=== PATIENT | male | born 1935 | race Caucasian/White ===

== ENCOUNTER 2019-10-13 14:23 | Observation (INO) ==
--- NOTE | 2019-10-13 14:51 | DR.GENAD ---
HPI Time Seen Time Seen by Provider: 10/13/19 14:51 PCP Primary Care Physician: DR. SABA Complaint/Symptoms Chief Complaint Doctors Comments: 84yo male presented for double vision. Pt reports nml vision yesterday and woke up today with double vision and ataxia. Pt denies any HUSSEIN, slurred speech, SOB, CP, weakness or recent trauma. pt was started on Abx for left leg wound. Denies any pain Chief Complaint:: PATIENT STATES HE IS SEEING DOUBLE AND HIS MD INSTRUCTED HIM TO COME TO THE ER TO GET A BRAIN SCAN DONE. STATES THIS STARTED THIS MORNING. STATES THAT HE WENT TO THE [employer] SUPER[facility] YESTERDAY AND THEY STARTED HIM ON AN ANTIBIOTIC SO HE THOUGHT MAYBE HE WAS HAVING AN ALLERGIC REACTION. Nurses notes reviewed Nurses Notes Review: Yes Source History Provided: Patient Mode of Arrival Mode of Arrival: Ambulatory Timing Onset of Chief Complaint: 10/13/19 Came on: On Awakening Duration Duration: Constant Duration: Hours Severity Severity: None Modifying Factors Worsens:: nothing Improves:: close one eye Associated Signs and Symptoms Associated Signs and Symptoms: none PMH PMH Past Medical History: Yes Past Medical History Comment: PROSTATE ALLERGIES Past Surgical History: No Family History History of Family Medical Conditions: No Social History Type of Tobacco Use: None Does any household member use tobacco: No Alcohol Use: None Do you use any recreational Drugs:: No Lives With: Spouse Lives Where: Home infectious screening Have you traveled outside the country in the last 6 months?: No Isolation: Standard ROS Review of Systems Constitutional: negative Chills, Fever and Weakness Eyes: Blurred Vision and Diplopia; negative Eye Pain ENTM: negative Nose Congestion Respiratoy: negative Short of Breath Cardiovascular: negative Chest Pain Gastrointestinal/Abdominal: negative Abdominal Pain, Nausea and Vomiting Genitourinary: negative Dysuria and Hematuria Neurological: Problems Walking; negative Headache, Seizure, Weakness and Dizziness Musculoskeletal: negative Neck Pain Integumentary: negative Rash Hematologic/Lymphatic: negative Lymphadenopathy Endocrine: negative Decreased Appetite Psychiatric: negative Depression All Other Systems: Reviewed and Negative PE Vital Signs Vitals: Temperature 98.2 F Pulse Rate 88 Respiratory Rate 18 Blood Pressure 118/68 O2 Sat by Pulse Oximetry 95 General Limitations: No Limitations Head Head Exam: Normal Inspection, Atraumatic and Normocephalic Eyes Eye exam: Normal Appearance, PERRL, EOMI and Other (No visual field deficits); negative Scleral Icterus and Nystagmus ENT ENT Exam: Normal Exam, Normal Oropharynx, Normal External Ear Exam, Mucous Membranes Moist and TM's Normal Bilaterally External Ear Exam: Normal External Inspection TM/Canal Exam: Bilateral: Normal Nose Exam: Normal Nose Exam Neck Neck Exam: Normal Inspection and Full ROM; negative Tenderness and Meningismus Respiratory Respiratory Exam: Normal Lung Sounds Bilat; negative Respiratory Distress Respiratory Exam: Bilateral: Clear to Auscultation Cardiovascular Cardiovascular Exam: Regular Rate and Normal Rhythm Abdominal Exam Abdominal Exam: Soft; negative Distention and Tenderness Extremities Extremities Exam: Normal Inspection, Full ROM and Normal Capillary Refill; negative Tenderness and Edema Back Back Exam: Normal Inspection; negative Tenderness and Vertebral Tenderness Neurologic Neurological Exam: Alert, Oriented X3, CN II-XII Intact and Reflexes Normal; negative Normal Gait and Motor Sensory Deficit Psychiatric Psychiatric Exam: Normal Affect and Normal Mood Skin Skin Exam: Warm, Dry and Intact MDM Additional Information Additional Information Obtained From: Old Records Differential Diagnosis Differential Diagnosis: stroke/mass/ataxia/ich COURSE Reevaluation 1st: Unchanged (pt still having dipolia, no HUSSEIN, slurred speech or FND. Will order MRI/MRA of head. Pt stable and will continue to monitor.) 2nd: Unchanged Consultation Consultation Comments: spoke to Dr. Saba for admission, agree with plan. will see in hospital. Education/Counseling Education/Counseling: Patient, Family, Education and Counseling Educated On: Treatment, Diagnosis, Prognosis and Needs for Follow Up (pcp) ROR Labs Reviewed Laboratory Results Reviewed?: Yes Result Diagrams: 10/13/19 15:18 10/13/19 15:18 Laboratory: WBC 6.1 X10^3/uL (3.6-10.0) 10/13/19 15:18 RBC 5.09 X10^6/uL (4.7-6.0) 10/13/19 15:18 Hgb 13.6 g/dL (13.5-18.0) 10/13/19 15:18 Hct 41.3 % (42.0-54.0) L 10/13/19 15:18 MCV 81.2 fL (80.0-100.0) 10/13/19 15:18 MCH 26.7 pg (27.0-34.0) L 10/13/19 15:18 MCHC 32.9 g/dL (33.0-35.0) L 10/13/19 15:18 RDW 16.5 % (11.6-16.5) 10/13/19 15:18 Plt Count 244 X10^3/uL (150.0-450.0) 10/13/19 15:18 MPV 7.2 fL (7.4-11.0) L 10/13/19 15:18 Neut % (Auto) 62.6 % (42.0-75.0) 10/13/19 15:18 Lymph % (Auto) 19.8 % (21.0-51.0) L 10/13/19 15:18 [place] % (Auto) 12.6 % (0.0-13.0) 10/13/19 15:18 Eos % (Auto) 3.7 % (0.9-2.9) H 10/13/19 15:18 Baso % (Auto) 1.3 % (0.2-1.0) H 10/13/19 15:18 Neut # (Auto) 3.8 x10^3/uL (2.2-4.8) 10/13/19 15:18 Lymph # (Auto) 1.2 X10^3/uL (1.3-2.9) L 10/13/19 15:18 [place] # (Auto) 0.8 x10^3/uL (0.3-0.8) 10/13/19 15:18 Eos # (Auto) 0.2 x10^3/uL (0.0-0.2) 10/13/19 15:18 Baso # (Auto) 0.1 X10^3/uL (0.0-0.1) 10/13/19 15:18 Absolute Nucleated RBC 0.1 /100WBC 10/13/19 15:18 ESR 13 MM/HOUR (0-15) 10/13/19 15:18 PT 13.9 SECONDS (11.8-14.3) 10/13/19 15:18 INR Target Range - 10/13/19 15:18 INR 1.11 (0.8-1.3) 10/13/19 15:18 APTT 30.3 SECONDS (22.9-36.5) 10/13/19 15:18 PTT Comment - 10/13/19 15:18 Sodium 141 mmol/L (136-145) 10/13/19 15:18 Corrected Sodium TNP 10/13/19 15:18 Potassium 4.0 mmol/L (3.5-5.1) 10/13/19 15:18 Chloride 104 mmol/L (98-107) 10/13/19 15:18 Carbon Dioxide 27.7 mmol/L (21-32) 10/13/19 15:18 BUN 12 mg/dL (7-18) 10/13/19 15:18 Creatinine 1.55 mg/dL (0.70-1.30) H 10/13/19 15:18 Est GFR (MDRD) Af Amer 55 (>60) L 10/13/19 15:18 Est GFR (MDRD) Non-Af 45 (>60) L 10/13/19 15:18 Glucose 98 mg/dL (65-99) 10/13/19 15:18 Calcium 9.7 mg/dL (8.5-10.1) 10/13/19 15:18 Troponin I 0.02 ng/mL (0-1.5) 10/13/19 15:18 Specimen Type Random urine 10/13/19 16:52 Urine Color Yellow (YELLOW) 10/13/19 16:52 Urine Appearance Clear (CLEAR) 10/13/19 16:52 Urine pH 6.5 (5.0 - 8.0) 10/13/19 16:52 Ur Specific [place] 1.015 (1.000-1.030) 10/13/19 16:52 Urine Protein Negative (NEGATIVE) 10/13/19 16:52 Urine Glucose (UA) Negative (NEGATIVE) 10/13/19 16:52 Urine Ketones Negative (NEGATIVE) 10/13/19 16:52 Urine Occult Blood Negative (NEGATIVE) 10/13/19 16:52 Urine Nitrite Negative (NEGATIVE) 10/13/19 16:52 Urine Bilirubin Negative (NEGATIVE) 10/13/19 16:52 Urine Urobilinogen Normal (NORMAL) 10/13/19 16:52 Ur Leukocyte Esterase Negative (NEGATIVE) 10/13/19 16:52 Other Results Comments: WBC 6.1 Hb 13.6 BMP Cr 1.55 Trop neg ESR [address] head: NAF MRI brain: Punctate regions of acute ischemia involving tegmentum interposed b/w the red nuclei and periaqueductal lopez MRA head: neg XRAY XRAY Interpreted by: Radiologist XRAY Findings: CXR: CM with COPD EKG Rate: 73 [place]: LAD Rhythm: NSR Block: IVCD Hypertrophy: None ST: Nonsp (PVC present, no comparison aviable, interpeted by me) Opioid Opioid Risk Tool Total: 0 Total Score Risk Category: Low Risk Copyright: [employer] predicting aberrant behaviors Diagnosis Discharge Problem: TIA (transient ischemic attack), LUDIVINA (acute kidney injury), Double vision with both eyes open Instructions Forms: Excuse From Work Patient Portal ADDITIONAL NOTES Additional Notes Additional Notes: I have personally reviewed your medications, lab results, imaging and time was spent discussion results. Patient educated on their health issue. They verbalized their understanding and agreed with plan of care. Condition: Stable Disposition: Admission
[2019-10-13 15:28] LABS: BASOPHILS # (AUTO) 0.1 X10^3/uL (0.0-0.1); BASOPHILS % (AUTO) 1.3 % (0.2-1.0); EOSINOPHILS # (AUTO) 0.2 x10^3/uL (0.0-0.2); EOSINOPHILS % (AUTO) 3.7 % (0.9-2.9); HEMATOCRIT 41.3 % (42.0-54.0); HEMOGLOBIN 13.6 g/dL (13.5-18.0); LYMPHOCYTES # (AUTO) 1.2 X10^3/uL (1.3-2.9); LYMPHOCYTES % (AUTO) 19.8 % (21.0-51.0); MEAN CORPUSCULAR HEMOGLOBIN 26.7 pg (27.0-34.0); MEAN CORPUSCULAR HGB CONC 32.9 g/dL (33.0-35.0); MEAN CORPUSCULAR VOLUME 81.2 fL (80.0-100.0); MEAN PLATELET VOLUME 7.2 fL (7.4-11.0); MONOCYTES # (AUTO) 0.8 x10^3/uL (0.3-0.8); MONOCYTES % (AUTO) 12.6 % (0.0-13.0); NEUTROPHILS # (AUTO) 3.8 x10^3/uL (2.2-4.8); NEUTROPHILS % (AUTO) 62.6 % (42.0-75.0); PLATELET COUNT 244 X10^3/uL (150.0-450.0); RED BLOOD COUNT 5.09 X10^6/uL (4.7-6.0); RED CELL DISTRIBUTION WIDTH 16.5 % (11.6-16.5); WHITE BLOOD COUNT 6.1 X10^3/uL (3.6-10.0)
[2019-10-13 15:43] LABS: BLOOD UREA NITROGEN 12 mg/dL (7-18); CALCIUM 9.7 mg/dL (8.5-10.1); CARBON DIOXIDE 27.7 mmol/L (21-32); CHLORIDE 104 mmol/L (98-107); CREATININE 1.55 mg/dL (0.70-1.30); SODIUM 141 mmol/L (136-145); TROPONIN I 0.02 ng/mL (0-1.5); eGFR NON BLACK RACES 45 (>60)
--- NOTE | 2019-10-13 15:45 | CT ---
CT HEAD WITHOUT CONTRAST CLINICAL HISTORY: 84-year-old male with double vision. Patient reports ataxia. COMPARISON: None. TECHNIQUE: Multiple, non-contrasted axial CT images were obtained from the skull base to the cranial vertex. Coronal and sagittal reformats were performed. Dose reduction techniques including Automated Exposure Control (AEC) and adjustment of mA and kV were utilized. FINDINGS: There are no abnormal intra- or extra-axial fluid collections, midline shift, or mass effect. Watt-white differentiation is normal. Global cortical involutional changes are present that are advanced for the patient's stated age. The ventricular system is enlarged but commensurate with the degree of sulcal prominence. Chronic infarction with encephalomalacia anterior aspect right keating radiata with chronic lacunar infarctions of the bilateral basal ganglia. Periventricular and supraventricular white matter hypodensity is present that is nonspecific in appearance, but most likely to represent microvascular ischemic changes. Atherosclerotic vascular calcification is present within the carotid siphons and distal vertebral arteries. Bilateral aphakia. Mucosal thickening scattered throughout the ethmoid labyrinth and left maxillary sinus with trace mucosal thickening right maxillary sinus. Scattered mucosal polyps throughout the left maxillary sinus and nasal passages. Remaining paranasal sinuses, mastoid air cells and tympanic cavities are clear. IMPRESSION: 1. No definite evidence of an acute intracranial process. If clinical concern persists for acute stroke and it would alter patient management, consider MRI/MRA brain. 2. Moderate microvascular white matter ischemic changes, with associated volume loss. 3. Mucosal thickening and sinonasal polyps as above. 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 Outpatient follow-up with ENT. Reported By:
[2019-10-13 16:05] LABS: ERYTHROCYTE SEDIMENTATION RATE 13 MM/HOUR (0-15)
--- NOTE | 2019-10-13 16:12 | RAD ---
HISTORY: 84-year-old male with double vision. Study: Frontal view of the chest. Comparison: None. Findings: The trachea is midline. The cardiac silhouette is enlarged with prominent interstitium and perihilar lung markings with exclusion of the costophrenic angles. The lungs are clear without focal consolidation, effusion or pneumothorax. Soft tissues are unremarkable. Osseous structures are unremarkable. IMPRESSION: 1. Cardiomegaly with findings consistent with COPD Reported By:
[2019-10-13] MEDS ORDERED: NS 1000 ML 1,000 ML IV ONE (16:16)
[2019-10-13 17:00] LABS: BILIRUBIN,URINE NEGATIVE (NEGATIVE); BLOOD/HEMOGLOBIN,URINE NEGATIVE (NEGATIVE); GLUCOSE, URINE NEGATIVE (NEGATIVE); KETONES,URINE NEGATIVE (NEGATIVE); LEUKOCYTE ESTERASE ,URINE NEGATIVE (NEGATIVE); NITRITES,URINE NEGATIVE (NEGATIVE); PH,URINE 6.5 (5.0 - 8.0); PROTEIN,URINE NEGATIVE (NEGATIVE); UROBILINOGEN,URINE NORMAL (NORMAL)
[2019-10-13 17:03] LABS: APPEARANCE,URINE CLEAR (CLEAR); COLOR,URINE YELLOW (YELLOW)
--- NOTE | 2019-10-13 18:00 | MRI ---
MRA HEAD WITHOUT CONTRAST CLINICAL HISTORY: 84-year-old male with diplopia and ataxia. COMPARISONS: CT head this date. TECHNIQUE: 3-D time of flight magnetic resonance angiographic images of the [place] were obtained and presented as maximum intensity projection images in rotating format. FINDINGS: The vertebral arteries are codominant. Bilateral PICA are present. The basilar artery is normal in appearance and gives off normal bilateral superior cerebellar and posterior cerebral arteries. Small caliber left P1 segment with the left P2 segment predominantly supplied by moderate caliber left posterior communicating artery. No right posterior communicating artery visualized. The internal carotid arteries are normal from the distal cervical segments to the carotid terminus. The middle and anterior cerebral arteries are normal in course and caliber. There is a small caliber anterior communicating artery. IMPRESSION: No aneurysm, high-grade stenosis, complete occlusion, dissection or vascular malformation. Reported By:
--- NOTE | 2019-10-13 18:13 | MRI ---
MRI BRAIN WITHOUT CONTRAST CLINICAL HISTORY: 84-year-old male with diplopia and ataxia. COMPARISON: CT head this date. TECHNIQUE: Multiplanar, multisequence MR images of the brain were obtained without contrast. FINDINGS: Punctate foci of diffusion restriction, right slightly greater than left within the teg[place] rim abutting the dorsal aspect of the red nuclei bilaterally and extending into the ventral periaqueductal lopez. Associated signal loss on ADC with subtle T2 FLAIR hyperintensity. No evidence of hemorrhagic transformation. The craniocervical junction is normal. Pituitary and optic nerve complex are normal. Multifocal punctate and small confluent T2 FLAIR signal hyperintensities are present within the subcortical, juxtacortical, periventricular and supraventricular white matter that are nonspecific in appearance but most likely to represent microvascular white matter ischemic changes. Chronic ischemic insult right putamen with encephalomalacia and left thalamus with encephalomalacia. Chronic ischemic insult right cerebellar hemisphere and bilateral occipital lobes with associated small volume encephalomalacia and surrounding gliosis. Normal signal characteristics and morphology are demonstrated within the cerebral cortex and corpus callosum. The major vascular flow voids, to include the dural venous sinuses, are intact. No abnormal susceptibility on gradient imaging. Age advanced cortical volume loss is present, with commensurate sulcal and ventricular prominence. The basilar cisterns are normal. Bilateral aphakia. The orbits and globes are otherwise within normal limits. Trace mucosal thickening of the frontal sinuses with scattered mucosal thickening throughout the ethmoid labyrinth. Moderate mucosal thickening left maxillary and mild mucosal thickening right maxillary sinus with trace mucosal thickening of the sphenoid sinuses. Small mucosal polyps left maxillary sinus and throughout the nasal passages. Tympanic cavities and mastoid air cells are clear. IMPRESSION: 1. Punctate regions of acute ischemia involving the tegmentum interposed between the red nuclei and periaqueductal lopez as above without hemorrhagic transformation. 2. 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 3. Mucosal thickening of the paranasal sinuses with sinonasal polyposis as above. Outpatient ENT evaluation is needed. Reported By:
[2019-10-13] MEDS ORDERED: ASPIRIN PO ONE (18:31)
[2019-10-13] MEDS ORDERED: ASPIRIN ONE (18:56)
[2019-10-13] MEDS: NS 1000 ML 1,000 ML IV SCH ×2 (20:48→23:48)
[2019-10-13] MEDS ORDERED: ALLEGRA ONE (20:57)
[2019-10-13] MEDS: SINGULAIR TAB 10 MG PO SCH ×2 (21:11)
[2019-10-13] MEDS: ALLEGRA PO SCH (21:11)
[2019-10-13 21:19] VITALS: BMI 26.0
[2019-10-14 05:13] LABS: BASOPHILS # (AUTO) 0.1 X10^3/uL (0.0-0.1); BASOPHILS % (AUTO) 1.1 % (0.2-1.0); EOSINOPHILS # (AUTO) 0.3 x10^3/uL (0.0-0.2); EOSINOPHILS % (AUTO) 6.5 % (0.9-2.9); HEMATOCRIT 36.6 % (42.0-54.0); HEMOGLOBIN 12.1 g/dL (13.5-18.0); LYMPHOCYTES # (AUTO) 1.3 X10^3/uL (1.3-2.9); LYMPHOCYTES % (AUTO) 26.6 % (21.0-51.0); MEAN CORPUSCULAR HEMOGLOBIN 26.8 pg (27.0-34.0); MEAN CORPUSCULAR VOLUME 81.2 fL (80.0-100.0); MEAN PLATELET VOLUME 7.4 fL (7.4-11.0); MONOCYTES # (AUTO) 0.7 x10^3/uL (0.3-0.8); MONOCYTES % (AUTO) 13.8 % (0.0-13.0); NEUTROPHILS # (AUTO) 2.6 x10^3/uL (2.2-4.8); PLATELET COUNT 205 X10^3/uL (150.0-450.0); RED BLOOD COUNT 4.51 X10^6/uL (4.7-6.0); RED CELL DISTRIBUTION WIDTH 16.4 % (11.6-16.5); WHITE BLOOD COUNT 4.9 X10^3/uL (3.6-10.0)
[2019-10-14 05:28] LABS: BLOOD UREA NITROGEN 10 mg/dL (7-18); CALCIUM 8.7 mg/dL (8.5-10.1); CARBON DIOXIDE 26.6 mmol/L (21-32); CHLORIDE 107 mmol/L (98-107); CHOL/HDL RATIO 3.4 (0.0-5.0); CHOLESTEROL 96 mg/dL (0-200); CREATININE 1.33 mg/dL (0.70-1.30); HDL CHOLESTEROL 28 mg/dL (40-60); SODIUM 141 mmol/L (136-145); TRIGLYCERIDES 86 mg/dL (0-150); TROPONIN I 0.03 ng/mL (0-1.5); eGFR NON BLACK RACES 54 (>60)
--- NOTE | 2019-10-14 07:54 | VAS ---
HISTORY: Diplopia Study: Carotid sonogram Comparison: None Technique: Multiple grayscale sonographic images were obtained. Color duplex Doppler evaluation was performed. Findings: On the right, there is no significant plaque present. Peak systolic velocity in the internal carotid artery 66.2 centimeters/second. ICA/CCA ratio 0.88. No stenosis is present. Flow in the vertebral artery was antegrade. On the left, no significant plaque is present. Peak systolic velocity in the internal carotid artery 71.7 centimeters/second. ICA/CCA ratio 0.96. No stenosis is present. Flow in the left vertebral artery was antegrade. IMPRESSION: But evidence for hemodynamically significant stenosis on either side Reported By:
[2019-10-14] MEDS ORDERED: ALLEGRA ONE ×2 (08:55→20:10)
[2019-10-14] MEDS ORDERED: DOXAZOSIN 4 MG PO SCH (09:00)
[2019-10-14] MEDS ORDERED: ASPIRIN PO SCH (09:00)
[2019-10-14] MEDS ORDERED: FINASTERIDE 5 MG PO SCH (09:00)
[2019-10-14 09:20] LABS: CREATINE KINASE MB 1.8 ng/mL (0-4.0); FREE T4 (FREE THYROXINE) 1.01 ng/dL (0.76-1.46); TROPONIN I 0.02 ng/mL (0-1.5); TSH (3RD GENERATION) 0.623 uIU/mL (0.358-3.74)
[2019-10-14] MEDS: CARDURA PO SCH (09:33)
[2019-10-14] MEDS: PROSCAR PO SCH (09:33)
[2019-10-14] MEDS: ECOTRIN TAB 325 MG PO SCH (09:33)
[2019-10-14] MEDS: SYNTHROID 112 mcg TAB PO SCH (09:33)
[2019-10-14] MEDS: PLAVIX PO SCH (09:33)
[2019-10-14 11:24] LABS: ABG ALLEN TEST POS; ABG BASE EXCESS -0.4 mmol/L (-2.0-2.0); ABG HCO3 22.3 mmol/L (22-26)
[2019-10-14] MEDS: ROCEPHIN VIAL 1 GRAM 1 G in NS 100 ML IV + SPIKE MINIBAG* 100 ML IV SCH (11:24)
[2019-10-14] MEDS: PULMICORT NEB TX 0.5 MG NEB SCH ×2 (11:36→21:32)
[2019-10-14] MEDS: DUONEB 0.5 MG/3 MG NEB SCH ×3 (11:36→18:01)
--- NOTE | 2019-10-14 13:32 | CT ---
CT ANGIOGRAPHY OF THE CHEST CLINICAL HISTORY: 84-year-old male with history of COPD presents with shortness of breath. COMPARISON: None. TECHNIQUE: CT angiogram of the chest was performed following the uncomplicated administration of 80 mL Omnipaque 350 intravenous contrast as per routine pulmonary embolus protocol. Coronal and Sagittal reformats provided. MIP reformats are submitted for review. Dose reduction techniques including Automated Exposure Control (AEC) and adjustment of mA and kV were utilized. FINDINGS: No pulmonary embolus is seen. There is no thoracic aortic dissection. Cardiomegaly without pericardial effusion. Scattered reactive axillary and mediastinal lymph nodes measuring up to 1 cm right pretracheal distribution without pathologic features. Moderate hiatal hernia with associated compressive atelectasis. Bibasilar subsegmental dependent atelectasis. No mass, nodule, effusion or pneumothorax. No consolidation. The trachea and mainstem bronchi are patent. Simple appearing 1.5 cm cyst right lobe of the liver with imaged upper abdomen otherwise unremarkable. The arteriovascular structures are within normal limits. Soft tissues are normal. The osseous structures are intact without fracture or malalignment. IMPRESSION: 1. No pulmonary embolus. 2. Reactive lymph nodes throughout the mediastinum and axilla, correlate clinically. 3. Moderate hiatal hernia with associated compressive atelectasis. Reported By:
--- NOTE | 2019-10-14 13:34 | DR.H&P ---
H&P - History & Physical for Day of: H&P Date: 10/13/19 - Chief Complaint Chief Complaint: SUDDEN ONSET OF DOUBLE VISION - History of Present Illness History of Present Illness: PATIENT STATES HE IS SEEING DOUBLE AND HIS MD INSTRUCTED HIM TO COME TO THE ER TO GET A BRAIN SCAN DONE. STATES THIS STARTED THIS MORNING. STATES THAT HE WENT TO THE [employer] [facility] YESTERDAY AND THEY STARTED HIM ON AN ANTIBIOTIC SO HE THOUGHT MAYBE HE WAS HAVING AN ALLERGIC REACTION. PT HAS HX OF SEVERE ALLERGIES AND DERMAITIS. PT DENIES ANY HX OF CAD, HTN. PT EVALUATED IN ER, ADMITTED FOR TREATMENT OF ACUTE ILLNESS. - Past Medical History Additional Medical History: ALLERGIES, CHRONIC DERMATITIS - Past Surgical History Additional Surgical History: CATARACT - Social History Does patient currently use any type of tobacco product: No Have you used tobacco products in the last 12 months: No Type of Tobacco Use: None Does any household member use tobacco: No Alcohol Use: None Drug Use: None - Medications Home Medications: amoxicillin [From Augmentin] Allergy (Verified 10/13/19 16:44) clavulanic acid [From Augmentin] Allergy (Verified 10/13/19 16:44) CONTINUE taking the following medications doxazosin 4 mg PO QAM 10/13/19 [History] fexofenadine 180 mg PO Q24H 10/13/19 [History] finasteride 5 mg PO DAILY 10/13/19 [History] levothyroxine 112 mcg PO DAILY 10/13/19 [History] montelukast 10 mg PO QHS 10/13/19 [History] - Review of Systems Constitutional: No Symptoms Reported Eyes: Vision Change (DOUBLE VISION) Respiratory: Cough, Wheezing Cardiovascular: Edema Gastrointestinal: No Symptoms Reported Genitourinary: No Symptoms Reported Musculoskeletal: No Symptoms Reported Skin: No Symptoms Reported Neurological: denies: Weakness, Numbness, Incoordination, Change in Speech - Physical Exam Vital Signs: Temperature 97.7 F Pulse Rate [Brachial] 55 Pulse Rate 74 Respiratory Rate 20 Blood Pressure [Right Arm] 140/78 Blood Pressure 118/68 O2 Sat by Pulse Oximetry 92 Oriented: Normal Eyes: Blurred Vision (DOUBLE VISION) Ear: Normal Throat: Dry Respiratory: Wheezes Throughout, RLL Diminished, LLL Diminished Cardiovascular: Normal, Edema : Normal Auscultation: Bowel Sounds: Normal Palpation: Normal Tenderness: Normal Skin: Decreased [place] Musculoskeletal: Normal Psychiatric: Normal Mood Description: Calm Speech Pattern: Clear, Appropriate. negative: Delayed, Slurred - Assessment/Plan (1) Double vision with both eyes open Status: Acute Plan: ADMIT, CT HEAD IN ER ON ADMISSION. MRI, MRA. CAROTID AND ECHO ORDERED ON ADMISSION. ASPIRIN, STATIN, PLAVIX THERAPY. CE, EKG, CXR ON ADMISSION (2) TIA (transient ischemic attack) Status: Acute - Allergies Allergies/Adverse Reactions: Allergies Allergy/AdvReac Type Severity Reaction Status Date / Time amoxicillin [From Augmentin] Allergy Verified 10/13/19 16:44 clavulanic acid Allergy Verified 10/13/19 16:44 [From Augmentin]
--- NOTE | 2019-10-14 13:46 | PCM.PROG ---
Progress Note - Progress Note for Day of Date of Exam: 10/14/19 - Subjective Subjective: 84 WM ER ADMISSION WITH POSSIBLE CVA, NEW ONSET OF DOUBLE VISION. PT HAD CAROTID ARTERY US WITHOUT SIGNIFICAN STENOSIS, MRA WITH FINDINGS :Punctate regions of acute ischemia involving the tegmentum interposed between the red nuclei and periaqueductal lopez as above without hemorrhagic transformation. PT IS CURRENTLY ON ASPIRIN THERAPY, STARTED ON PLAVIX AND CRESTOR, BP STABLE. PT HAD DIFFUSE WHEEZING AND RHONCHI ON EXAM. PT IS ON SUPPLEMENTAL O2. ABG AND CT CHEST ORDERED THIS AM. LABS AND DIAGNOSTIC RESULTS REVIEWED WITH PT AND FAMILY - Past Medical Family Social History Past Med/Fam/Surg Hx: No changes since H&P Allergies: Allergies amoxicillin [From Augmentin] Allergy (Verified 10/13/19 16:44) clavulanic acid [From Augmentin] Allergy (Verified 10/13/19 16:44) - Review of Systems ROS: No change since H&P - Vital Signs and I&O's Vital Signs: Temperature 97.7 F Pulse Rate [Brachial] 55 Pulse Rate 74 Respiratory Rate 20 Blood Pressure [Right Arm] 140/78 Blood Pressure 118/68 O2 Sat by Pulse Oximetry 92 Intake and Output: Intake & Output 10/12/19 10/13/19 10/14/19 10/15/19 11:59 11:59 11:59 11:59 Intake Total 850 / 850 Output Total 150 / 150 Balance 700 / 700 - Physical Exam Oriented: Normal Eyes: Blurred Vision (DOUBLE VISION) Ear: Normal Throat: Dry Cardiovascular: Normal, Edema : Normal Auscultation: Bowel Sounds: Normal Tenderness: Normal Skin: Decreased Turgur Musculoskeletal: Normal Psychiatric: Normal Mood Description: Calm Speech Pattern: Clear, Appropriate. negative: Delayed, Slurred - Laboratory and Diagnostics Result Diagrams: 10/14/19 04:25 10/14/19 04:25 Labs: Laboratory WBC 4.9 X10^3/uL (3.6-10.0) 10/14/19 04:25 RBC 4.51 X10^6/uL (4.7-6.0) L 10/14/19 04:25 Hgb 12.1 g/dL (13.5-18.0) L 10/14/19 04:25 Hct 36.6 % (42.0-54.0) L 10/14/19 04:25 MCV 81.2 fL (80.0-100.0) 10/14/19 04:25 MCH 26.8 pg (27.0-34.0) L 10/14/19 04:25 MCHC 33.0 g/dL (33.0-35.0) 10/14/19 04:25 RDW 16.4 % (11.6-16.5) 10/14/19 04:25 Plt Count 205 X10^3/uL (150.0-450.0) 10/14/19 04:25 MPV 7.4 fL (7.4-11.0) 10/14/19 04:25 Neut % (Auto) 52.0 % (42.0-75.0) 10/14/19 04:25 Lymph % (Auto) 26.6 % (21.0-51.0) 10/14/19 04:25 [place] % (Auto) 13.8 % (0.0-13.0) H 10/14/19 04:25 Eos % (Auto) 6.5 % (0.9-2.9) H 10/14/19 04:25 Baso % (Auto) 1.1 % (0.2-1.0) H 10/14/19 04:25 Neut # (Auto) 2.6 x10^3/uL (2.2-4.8) 10/14/19 04:25 Lymph # (Auto) 1.3 X10^3/uL (1.3-2.9) 10/14/19 04:25 [place] # (Auto) 0.7 x10^3/uL (0.3-0.8) 10/14/19 04:25 Eos # (Auto) 0.3 x10^3/uL (0.0-0.2) H 10/14/19 04:25 Baso # (Auto) 0.1 X10^3/uL (0.0-0.1) 10/14/19 04:25 Absolute Nucleated RBC 0.1 /100WBC 10/14/19 04:25 ESR 13 MM/HOUR (0-15) 10/13/19 15:18 PT 13.9 SECONDS (11.8-14.3) 10/13/19 15:18 INR Target Range - 10/13/19 15:18 INR 1.11 (0.8-1.3) 10/13/19 15:18 APTT 30.3 SECONDS (22.9-36.5) 10/13/19 15:18 PTT Comment - 10/13/19 15:18 Sample Site Rra 10/14/19 11:20 ABG pH 7.480 (7.35-7.45) H 10/14/19 11:20 ABG pCO2 30.0 mmHg (35.0-45.0) L 10/14/19 11:20 ABG pO2 54.0 mmHg (80.0-100.0) L 10/14/19 11:20 ABG HCO3 22.3 mmol/L (22-26) 10/14/19 11:20 ABG O2 Saturation 90.0 % (90-100) 10/14/19 11:20 ABG Base Excess -0.4 mmol/L (-2.0-2.0) 10/14/19 11:20 John Test Pos 10/14/19 11:20 A-a Gradient 58.0 mmHg 10/14/19 11:20 FiO2 21.0 10/14/19 11:20 Blood Gas Comments Pt toll well eb 10/14/19 11:20 Sodium 141 mmol/L (136-145) 10/14/19 04:25 Corrected Sodium TNP 10/14/19 04:25 Potassium 3.6 mmol/L (3.5-5.1) 10/14/19 04:25 Chloride 107 mmol/L (98-107) 10/14/19 04:25 Carbon Dioxide 26.6 mmol/L (21-32) 10/14/19 04:25 BUN 10 mg/dL (7-18) 10/14/19 04:25 Creatinine 1.33 mg/dL (0.70-1.30) H 10/14/19 04:25 Est GFR (MDRD) Af Amer > 60 (>60) 10/14/19 04:25 Est GFR (MDRD) Non-Af 54 (>60) L 10/14/19 04:25 Glucose 96 mg/dL (65-99) 10/14/19 04:25 Calcium 8.7 mg/dL (8.5-10.1) 10/14/19 04:25 Creatine Kinase 60 Units/L (39-308) 10/14/19 08:45 CK-MB (CK-2) 1.8 ng/mL (0-4.0) 10/14/19 08:45 CK/CKMB % Calc 3.0 % (<4) 10/14/19 08:45 Troponin I 0.02 ng/mL (0-1.5) 10/14/19 08:45 Triglycerides 86 mg/dL (0-150) 10/14/19 04:25 Cholesterol 96 mg/dL (0-200) 10/14/19 04:25 LDL Cholesterol, Calc 51 mg/dL (0-100) 10/14/19 04:25 HDL Cholesterol 28 mg/dL (40-60) L 10/14/19 04:25 Cholesterol/HDL Ratio 3.4 (0.0-5.0) 10/14/19 04:25 Free T4 1.01 ng/dL (0.76-1.46) 10/14/19 08:45 TSH 3rd Generation 0.623 uIU/mL (0.358-3.74) 10/14/19 08:45 Specimen Type Random urine 10/13/19 16:52 Urine Color Yellow (YELLOW) 10/13/19 16:52 Urine Appearance Clear (CLEAR) 10/13/19 16:52 Urine pH 6.5 (5.0 - 8.0) 10/13/19 16:52 Ur Specific [place] 1.015 (1.000-1.030) 10/13/19 16:52 Urine Protein Negative (NEGATIVE) 10/13/19 16:52 Urine Glucose (UA) Negative (NEGATIVE) 10/13/19 16:52 Urine Ketones Negative (NEGATIVE) 10/13/19 16:52 Urine Occult Blood Negative (NEGATIVE) 10/13/19 16:52 Urine Nitrite Negative (NEGATIVE) 10/13/19 16:52 Urine Bilirubin Negative (NEGATIVE) 10/13/19 16:52 Urine Urobilinogen Normal (NORMAL) 10/13/19 16:52 Ur Leukocyte Esterase Negative (NEGATIVE) 10/13/19 16:52 - Plan (1) Double vision with both eyes open Status: Acute Plan: CT HEAD IN ER ON ADMISSION. MRI, MRA. CAROTID AND ECHO ORDERED ON ADMISSION. ASPIRIN, STATIN, PLAVIX THERAPY. CE, EKG, ABG, CT CHEST. OPTOMETRY EVALUATION (2) TIA (transient ischemic attack) Status: Acute Plan: ASPIRIN STATIN PLAVIS. BP CONTROL, CAROTID US. EKG AND CE
[2019-10-14] MEDS: NS 1000 ML 1,000 ML IV SCH (15:48)
[2019-10-14] MEDS: ALLEGRA PO SCH (20:41)
[2019-10-14] MEDS: SINGULAIR TAB 10 MG PO SCH (20:41)
[2019-10-14] MEDS ORDERED: CRESTOR TAB 10 MG PO SCH (21:00)
[2019-10-15] MEDS: DUONEB 0.5 MG/3 MG NEB SCH ×2 (00:24→05:50)
[2019-10-15] MEDS: NS 1000 ML 1,000 ML IV SCH ×2 (02:55→04:58)
[2019-10-15 05:25] LABS: BASOPHILS % (AUTO) 0.8 % (0.2-1.0); EOSINOPHILS # (AUTO) 0.2 x10^3/uL (0.0-0.2); EOSINOPHILS % (AUTO) 3.6 % (0.9-2.9); HEMATOCRIT 38.4 % (42.0-54.0); HEMOGLOBIN 12.8 g/dL (13.5-18.0); LYMPHOCYTES # (AUTO) 1.3 X10^3/uL (1.3-2.9); LYMPHOCYTES % (AUTO) 22.5 % (21.0-51.0); MEAN CORPUSCULAR HEMOGLOBIN 27.3 pg (27.0-34.0); MEAN CORPUSCULAR HGB CONC 33.4 g/dL (33.0-35.0); MEAN CORPUSCULAR VOLUME 81.8 fL (80.0-100.0); MEAN PLATELET VOLUME 7.7 fL (7.4-11.0); MONOCYTES # (AUTO) 0.7 x10^3/uL (0.3-0.8); MONOCYTES % (AUTO) 12.1 % (0.0-13.0); NEUTROPHILS # (AUTO) 3.6 x10^3/uL (2.2-4.8); PLATELET COUNT 211 X10^3/uL (150.0-450.0); RED CELL DISTRIBUTION WIDTH 16.5 % (11.6-16.5)
[2019-10-15 05:34] LABS: ALANINE AMINOTRANSFERASE 15 Units/L (12-78); ALBUMIN 3.2 g/dL (3.4-5.0); ALKALINE PHOSPHATASE 78 Units/L (46-116); ASPARTATE AMINO TRANSFERASE 21 Units/L (15-37); BLOOD UREA NITROGEN 9 mg/dL (7-18); CALCIUM 8.5 mg/dL (8.5-10.1); CARBON DIOXIDE 22.5 mmol/L (21-32); CHLORIDE 107 mmol/L (98-107); COR CA(FOR HYPOALB) 9.1 mg/dL (8.5-10.1); CREATININE 1.39 mg/dL (0.70-1.30); SODIUM 141 mmol/L (136-145); TOTAL PROTEIN 7.1 g/dL (6.4-8.2); eGFR NON BLACK RACES 51 (>60)
[2019-10-15 07:52] LABS: BILIRUBIN,URINE NEGATIVE (NEGATIVE); BLOOD/HEMOGLOBIN,URINE NEGATIVE (NEGATIVE); GLUCOSE, URINE NEGATIVE (NEGATIVE); KETONES,URINE NEGATIVE (NEGATIVE); LEUKOCYTE ESTERASE ,URINE NEGATIVE (NEGATIVE); NITRITES,URINE NEGATIVE (NEGATIVE); PROTEIN,URINE NEGATIVE (NEGATIVE); UROBILINOGEN,URINE NORMAL (NORMAL)
[2019-10-15 07:53] LABS: APPEARANCE,URINE CLEAR (CLEAR); COLOR,URINE YELLOW (YELLOW)
[2019-10-15] MEDS: PULMICORT NEB TX 0.5 MG NEB SCH (08:57)
[2019-10-15] MEDS ORDERED: SOLU-Medrol 40 MG VIAL ONE (09:08)
[2019-10-15] MEDS: ROCEPHIN VIAL 1 GRAM 1 G in NS 100 ML IV + SPIKE MINIBAG* 100 ML IV SCH (09:11)
[2019-10-15] MEDS: SOLU-Medrol 40 MG VIAL IVP SCH ×2 (09:12→13:57)
[2019-10-15] MEDS: SYNTHROID 112 mcg TAB PO SCH (09:15)
[2019-10-15] MEDS: PLAVIX PO SCH (09:15)
[2019-10-15] MEDS: CARDURA PO SCH (09:15)
[2019-10-15] MEDS: ECOTRIN TAB 325 MG PO SCH (09:15)
[2019-10-15] MEDS: PROSCAR PO SCH (09:15)
[2019-10-15] MEDS ORDERED: NORVASC TAB 5 MG PO ONE (10:00)
[2019-10-15] MEDS ORDERED: LOVENOX INJ 40 MG SYR SC SCH (10:00)
[2019-10-15] MEDS ORDERED: XOPENEX 1.25 MG/3 ML NEBULE NEB SCH (12:00)
[2019-10-15 12:23] VITALS: BP 134/78
== END 2019-10-15 15:10 | disposition home or self-care (01) ==
LOC: ER 14:48 → MED/SURG 14:48
PROVIDERS: ADMIT Internal Medicine; ATTEND Internal Medicine
DX: J44.9 Chronic obstructive pulmonary disease, unspecified; J32.8 Other chronic sinusitis; R94.4 Abnormal results of kidney function studies; N17.8 Other acute kidney failure; G45.9 Transient cerebral ischemic attack, unspecified; Z79.01 Long term (current) use of anticoagulants; R48.8 Other symbolic dysfunctions; I10 Essential (primary) hypertension; R26.89 Other abnormalities of gait and mobility; R94.31 Abnormal electrocardiogram [ECG] [EKG]; H53.2 Diplopia; K44.9 Diaphragmatic hernia without obstruction or gangrene
CPT/HCPCS: 36415; 36600; 70450; 70544; 70551; 71010; 71045; 71275; 80048; 80053; 80061; 81003; 82550; 82553; 82803; 84439; 84443; 84484; 85025; 85610; 85652; 85730; 92523; 93005; 93306; 93880; 94640; 94760; 96360; 96361; 96365; 96372; 96374; 97116; 97162; 97166; 97530; 97535; 99284; A4222; S0138; G0378; J0696; J1650; J2920; J7030; J7050; J7620; J7626

== ENCOUNTER 2019-11-20 09:36 | Inpatient (IN) ==
[2019-11-20 09:44] VITALS: BMI 28.4
--- NOTE | 2019-11-20 09:53 | DR.SOBA ---
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 Complaints Chief Complaint:: PT. C/O SHORTNESS OF BREATH AND LOW O2 SAT. O2 SAT DROPPED TO 84 LAST NIGHT PER PT. PT. ALSO C/O COUGH. 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) Past Surgical History: Yes Surgical History: Other Past Surgical History Comment: CATARACTS Family History History of Family Medical Conditions: No Social History Does patient currently use any type of tobacco product: No Have you used tobacco products in the last 12 months: No Type of Tobacco Use: None Does any household member use tobacco: No Alcohol Use: None Do you use any recreational Drugs:: No Lives With: Spouse Lives Where: Home infectious screening In the last 2 months have you had wt loss of >10#?: NO Have you had fever, night sweats or hemotysis?: No Have you traveled outside the country in the last 6 months?: No Isolation: Standard ROS Review of Systems Constitutional: See HPI, Malaise and Fatigue ENTM: No Symptoms Reported Respiratoy: See HPI Cardiovascular: Chest Pain Gastrointestinal/Abdominal: No Symptoms Reported Genitourinary: No Symptoms Reported Neurological: No Symptoms Reported Musculoskeletal: No Symptoms Reported Integumentary: No Symptoms Reported Hematologic/Lymphatic: No Symptoms Reported Endocrine: No Symptoms Reported PE Vital Signs Vitals: Temperature 97.9 F Pulse Rate 88 Respiratory Rate 14 Blood Pressure [Right Arm] 134/78 Blood Pressure 126/74 O2 Sat by Pulse Oximetry 94 General Limitations: No Limitations General Appearance: Alert and In No Apparent Distress Head Head Exam: Normal Inspection, Atraumatic and Normocephalic Eyes Eye exam: Normal Appearance and EOMI ENT ENT Exam: Normal Exam Neck Neck Exam: Normal Inspection, Full ROM and Trachea Midline Chest Chest Inspection: Normal Inspection and Symmetric Chest Wall Rise Respiratory Respiratory Exam: Bilateral: Wheezing, Bilateral: Rhonchi (rll) and Bilateral: Decreased Breath Sounds Cardiovascular Cardiovascular Exam: Regular Rate and Irregular Rhythm Abdominal Exam Abdominal Exam: Normal Inspection, Normal Bowel Sounds and Soft Extremities Extremities Exam: Normal Inspection and Full ROM Psychiatric Psychiatric Exam: Normal Affect and Normal Mood Skin Skin Exam: Warm COURSE Reevaluation 1st: Improved (minimally but still w/scattered wheezes) ROR Labs Reviewed Laboratory Results Reviewed?: Yes Result Diagrams: 11/20/19 10:11 11/20/19 10:11 Laboratory: WBC 8.5 X10^3/uL (3.6-10.0) 11/20/19 10:11 RBC 4.23 X10^6/uL (4.7-6.0) L 11/20/19 10:11 Hgb 11.8 g/dL (13.5-18.0) L 11/20/19 10:11 Hct 35.8 % (42.0-54.0) L 11/20/19 10:11 MCV 84.8 fL (80.0-100.0) 11/20/19 10:11 MCH 28.0 pg (27.0-34.0) 11/20/19 10:11 MCHC 33.0 g/dL (33.0-35.0) 11/20/19 10:11 RDW 18.2 % (11.6-16.5) H 11/20/19 10:11 Plt Count 226 X10^3/uL (150.0-450.0) 11/20/19 10:11 MPV 7.8 fL (7.4-11.0) 11/20/19 10:11 Neut % (Auto) 61.1 % (42.0-75.0) 11/20/19 10:11 Lymph % (Auto) 13.8 % (21.0-51.0) L 11/20/19 10:11 [place] % (Auto) 6.7 % (0.0-13.0) 11/20/19 10:11 Eos % (Auto) 17.0 % (0.9-2.9) H 11/20/19 10:11 Baso % (Auto) 1.4 % (0.2-1.0) H 11/20/19 10:11 Neut # (Auto) 5.2 x10^3/uL (2.2-4.8) H 11/20/19 10:11 Lymph # (Auto) 1.2 X10^3/uL (1.3-2.9) L 11/20/19 10:11 [place] # (Auto) 0.6 x10^3/uL (0.3-0.8) 11/20/19 10:11 Eos # (Auto) 1.4 x10^3/uL (0.0-0.2) H 11/20/19 10:11 Baso # (Auto) 0.1 X10^3/uL (0.0-0.1) 11/20/19 10:11 Absolute Nucleated RBC 0.0 /100WBC 11/20/19 10:11 Sample Site Rr 11/20/19 10:30 ABG pH 7.470 (7.35-7.45) H 11/20/19 10:30 ABG pCO2 37.0 mmHg (35.0-45.0) 11/20/19 10:30 ABG pO2 61.0 mmHg (80.0-100.0) L 11/20/19 10:30 ABG HCO3 26.9 mmol/L (22-26) H 11/20/19 10:30 ABG O2 Saturation 93.0 % (90-100) 11/20/19 10:30 ABG Base Excess 3.2 mmol/L (-2.0-2.0) H 11/20/19 10:30 John Test Pos 11/20/19 10:30 A-a Gradient 178.0 mmHg 11/20/19 10:30 FiO2 40.0 11/20/19 10:30 Blood Gas Comments Nelson well cb 11/20/19 10:30 Sodium 143 mmol/L (136-145) 11/20/19 10:11 Corrected Sodium TNP 11/20/19 10:11 Potassium 4.1 mmol/L (3.5-5.1) 11/20/19 10:11 Chloride 108 mmol/L (98-107) H 11/20/19 10:11 Carbon Dioxide 27.9 mmol/L (21-32) 11/20/19 10:11 BUN 14 mg/dL (7-18) 11/20/19 10:11 Creatinine 1.45 mg/dL (0.70-1.30) H 11/20/19 10:11 Est GFR (MDRD) Af Amer 59 (>60) 11/20/19 10:11 Est GFR (MDRD) Non-Af 49 (>60) L 11/20/19 10:11 Glucose 103 mg/dL (65-99) H 11/20/19 10:11 Calcium 8.8 mg/dL (8.5-10.1) 11/20/19 10:11 Corrected Calcium 9.5 mg/dL (8.5-10.1) 11/20/19 10:11 Total Bilirubin 0.60 mg/dL (0.2-1.0) 11/20/19 10:11 AST 33 Units/L (15-37) 11/20/19 10:11 ALT 26 Units/L (12-78) 11/20/19 10:11 Alkaline Phosphatase 72 Units/L (46-116) 11/20/19 10:11 Creatine Kinase 108 Units/L (39-308) 11/20/19 10:11 CK-MB (CK-2) 3.2 ng/mL (0-4.0) 11/20/19 10:11 CK/CKMB % Calc 3.0 % (<4) 11/20/19 10:11 Troponin I < 0.02 ng/mL (0-1.5) 11/20/19 10:11 Total Protein 6.8 g/dL (6.4-8.2) 11/20/19 10:11 Albumin 3.1 g/dL (3.4-5.0) L 11/20/19 10:11 Globulin 3.7 g/dL (2.5-4.5) 11/20/19 10:11 Albumin/Globulin Ratio 0.8 Ratio (1.1-2.1) L 11/20/19 10:11 Influenza Type A (PCR) Negative (NEGATIVE) 11/20/19 10:13 Influenza Type B (PCR) Negative (NEGATIVE) 11/20/19 10:13 S. pyogenes (TEM-PCR) Not detected (NOT DETECT) 11/20/19 10:13 Other Results Comments: IMPRESSION Retrocardiac density is of uncertain etiology but could represent hiatal hernia. Other cause is not ruled out. Follow-up suggested, standard PA and lateral views if possible. XRAY XRAY Interpreted by: Radiologist Opioid Opioid Risk Tool Age (Joseph box if 16-45): No History of Preadolescent Sexual Abuse: No Total: 0 Total Score Risk Category: Low Risk Copyright: Jason FERREIRA predicting aberrant behaviors
[2019-11-20] MEDS ORDERED: DUONEB 0.5 MG/3 MG (3 mL) NEB ONE ×2 (10:00→10:01)
[2019-11-20] MEDS ORDERED: ROCEPHIN VIAL 1 GRAM IM ONE (10:01)
[2019-11-20] MEDS ORDERED: SOLU-Medrol 125 MG VIAL IVP ONE (10:01)
[2019-11-20] MEDS ORDERED: SOLU-Medrol 125 MG VIAL ONE (10:06)
[2019-11-20] MEDS ORDERED: ROCEPHIN VIAL 1 GRAM ONE (10:07)
[2019-11-20] MEDS ORDERED: NS 1000 ML 1,000 ML ONE (10:13)
[2019-11-20] MEDS ORDERED: NS 100 ML IV + SPIKE MINIBAG* 100 ML IV ONE (10:13)
[2019-11-20 10:21] LABS: BASOPHILS # (AUTO) 0.1 X10^3/uL (0.0-0.1); BASOPHILS % (AUTO) 1.4 % (0.2-1.0); EOSINOPHILS # (AUTO) 1.4 x10^3/uL (0.0-0.2); HEMATOCRIT 35.8 % (42.0-54.0); HEMOGLOBIN 11.8 g/dL (13.5-18.0); LYMPHOCYTES # (AUTO) 1.2 X10^3/uL (1.3-2.9); LYMPHOCYTES % (AUTO) 13.8 % (21.0-51.0); MEAN CORPUSCULAR VOLUME 84.8 fL (80.0-100.0); MEAN PLATELET VOLUME 7.8 fL (7.4-11.0); MONOCYTES # (AUTO) 0.6 x10^3/uL (0.3-0.8); MONOCYTES % (AUTO) 6.7 % (0.0-13.0); NEUTROPHILS # (AUTO) 5.2 x10^3/uL (2.2-4.8); NEUTROPHILS % (AUTO) 61.1 % (42.0-75.0); PLATELET COUNT 226 X10^3/uL (150.0-450.0); RED BLOOD COUNT 4.23 X10^6/uL (4.7-6.0); RED CELL DISTRIBUTION WIDTH 18.2 % (11.6-16.5); WHITE BLOOD COUNT 8.5 X10^3/uL (3.6-10.0)
[2019-11-20] MEDS ORDERED: ROCEPHIN VIAL 1 GRAM IVP ONE (10:27)
[2019-11-20] MEDS ORDERED: ROCEPHIN VIAL 1 GRAM 1 G in NS 100 ML IV + SPIKE MINIBAG* 100 ML IV ONE (10:29)
--- NOTE | 2019-11-20 10:35 | RAD ---
HISTORYCough SOBSTUDYAP [id number] mild cardiomegaly. The right lung is clear. There is an ill-defined retrocardiac density which is probably separate from the descending aorta. Otherwise, the left lung is clear.IMPRESSIONRetrocardiac density is of uncertain etiology but could represent hiatal hernia. Other cause is not ruled out. Follow-up suggested, standard PA and lateral views if possible.Electronically signed by: BETTYE MALIK (Nov 20, 2019 10:34:02)
[2019-11-20 10:37] LABS: ALANINE AMINOTRANSFERASE 26 Units/L (12-78); ALBUMIN 3.1 g/dL (3.4-5.0); ALKALINE PHOSPHATASE 72 Units/L (46-116); ASPARTATE AMINO TRANSFERASE 33 Units/L (15-37); BLOOD UREA NITROGEN 14 mg/dL (7-18); CALCIUM 8.8 mg/dL (8.5-10.1); CARBON DIOXIDE 27.9 mmol/L (21-32); CHLORIDE 108 mmol/L (98-107); COR CA(FOR HYPOALB) 9.5 mg/dL (8.5-10.1); CREATININE 1.45 mg/dL (0.70-1.30); SODIUM 143 mmol/L (136-145); TOTAL PROTEIN 6.8 g/dL (6.4-8.2); eGFR NON BLACK RACES 49 (>60)
[2019-11-20 10:39] LABS: ABG ALLEN TEST POS; ABG BASE EXCESS 3.2 mmol/L (-2.0-2.0); ABG HCO3 26.9 mmol/L (22-26)
[2019-11-20] MEDS ORDERED: NS 1000 ML 1,000 ML IV SCH (11:00)
[2019-11-20 11:14] LABS: CREATINE KINASE 108 Units/L (39-308); CREATINE KINASE MB 3.2 ng/mL (0-4.0); TROPONIN I < 0.02 ng/mL (0-1.5)
[2019-11-20 11:17] LABS: STREP A BY PCR NOT DETECTED (NOT DETECT)
[2019-11-20] MEDS ORDERED: TYLENOL 325 MG TAB PO PRN (11:55)
[2019-11-20] MEDS ORDERED: ZOFRAN INJ 4 MG VIAL IVP PRN (11:55)
[2019-11-20] MEDS ORDERED: ROCEPHIN VIAL 1 GRAM 1 G in NS 100 ML IV + SPIKE MINIBAG* 100 ML IV SCH (11:56)
[2019-11-20] MEDS: DUONEB 0.5 MG/3 MG (3 mL) NEB SCH ×2 (13:35→17:31)
[2019-11-20] MEDS: ZITHROMAX INJ 500 MG VIAL 500 MG in D5W 250 ML IV 250 ML IV SCH (14:09)
[2019-11-21] MEDS: DUONEB 0.5 MG/3 MG (3 mL) NEB SCH ×4 (00:15→17:26)
[2019-11-21 05:19] LABS: BASOPHILS % (AUTO) 0.1 % (0.2-1.0); HEMATOCRIT 34.6 % (42.0-54.0); HEMOGLOBIN 11.3 g/dL (13.5-18.0); LYMPHOCYTES # (AUTO) 0.7 X10^3/uL (1.3-2.9); LYMPHOCYTES % (AUTO) 4.1 % (21.0-51.0); MEAN CORPUSCULAR HEMOGLOBIN 27.5 pg (27.0-34.0); MEAN CORPUSCULAR HGB CONC 32.7 g/dL (33.0-35.0); MEAN PLATELET VOLUME 8.1 fL (7.4-11.0); MONOCYTES # (AUTO) 0.6 x10^3/uL (0.3-0.8); MONOCYTES % (AUTO) 3.3 % (0.0-13.0); NEUTROPHILS # (AUTO) 15.6 x10^3/uL (2.2-4.8); NEUTROPHILS % (AUTO) 92.5 % (42.0-75.0); PLATELET COUNT 234 X10^3/uL (150.0-450.0); RED BLOOD COUNT 4.13 X10^6/uL (4.7-6.0); WHITE BLOOD COUNT 16.9 X10^3/uL (3.6-10.0)
[2019-11-21 05:26] LABS: ALANINE AMINOTRANSFERASE 24 Units/L (12-78); ALBUMIN 2.8 g/dL (3.4-5.0); ALKALINE PHOSPHATASE 68 Units/L (46-116); ASPARTATE AMINO TRANSFERASE 22 Units/L (15-37); BLOOD UREA NITROGEN 15 mg/dL (7-18); CALCIUM 8.3 mg/dL (8.5-10.1); CARBON DIOXIDE 22.9 mmol/L (21-32); CHLORIDE 106 mmol/L (98-107); COR CA(FOR HYPOALB) 9.3 mg/dL (8.5-10.1); COR NA(FOR HYPERGLY) 143 mmol/L (136-145); CREATININE 1.36 mg/dL (0.70-1.30); SODIUM 142 mmol/L (136-145); TOTAL PROTEIN 6.5 g/dL (6.4-8.2); eGFR NON BLACK RACES 53 (>60)
[2019-11-21 05:48] LABS: BAND NEUTROPHILS % 7 % (0-10); PLATELET MORPHOLOGY COMMENT NORMAL (NORMAL)
[2019-11-21] MEDS ORDERED: K-DUR TAB 20 MEQ PO PRN (06:00)
[2019-11-21] MEDS ORDERED: POTASSIUM CHLORIDE LIQ 20 MEQ UDC PO PRN (06:00)
[2019-11-21] MEDS ORDERED: K-RIDER 10 MEQ/NS 100 ML 10 MEQ/100 ML BAG IV PRN (06:00)
[2019-11-21] MEDS ORDERED: POTASSIUM CHL 60 MEQ/NS 0.45% 500 ML IV PRN (06:00)
[2019-11-21] MEDS ORDERED: KLOR-CON PO PRN (06:00)
[2019-11-21] MEDS ORDERED: POTASSIUM CHL 40 MEQ/NS 0.45% 500 ML IV PRN (06:00)
[2019-11-21] MEDS ORDERED: MICRO K EXTEN CAP 10 MEQ PO PRN (06:00)
[2019-11-21] MEDS: MAGNESIUM SULFATE 1 GRAM/100 mL PREMIX 1 GM/100 ML BAG IV PRN ×2 (07:13→08:45)
[2019-11-21] MEDS: ROCEPHIN VIAL 1 GRAM 1 G in NS 100 ML IV + SPIKE MINIBAG* 100 ML IV SCH (08:50)
[2019-11-21] MEDS: ZITHROMAX INJ 500 MG VIAL 500 MG in D5W 250 ML IV 250 ML IV SCH (08:51)
[2019-11-21] MEDS ORDERED: SOLU-Medrol 125 MG VIAL IVP SCH (09:00)
--- NOTE | 2019-11-21 10:02 | DR.H&P ---
H&P History & Physical for Day of: H&P Date: 11/21/19 Chief Complaint Chief Complaint: SOB Allergies Allergies Allergy/AdvReac Type Severity Reaction Status Date / Time amoxicillin [From Augmentin] Allergy Verified 11/20/19 09:43 clavulanic acid Allergy Verified 11/20/19 09:43 [From Augmentin] History of Present Illness History of Present Illness: Mr. Rincon is a 84y/o male with a PMH of COPD/asthma presented with worsening SOB. He has been seen at [facility] and was started on nocturnal oxygen about 2 weeks ago but lately has been requiring more oxygen. He denies fever or chills, no cough. No sick contact. In the ED, CXR showed Stable mild cardiomegaly. There is an ill-defined retrocardiac density which is probably separate from the descending aorta. Otherwise, the left lung is clear. He was admitted for COPD exacerbation, started on solumedrol and IV abx. This morning, he reports improvement in his breathing, currently on 3L oxygen. Will continue bronchodilators, Iv abx and solumedrol. Repeat CXR PA/Lat tomorrow morning. Wean oxygen as tolerated. Replace Magnesium. 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) Additional Medical History: ALLERGIES, CHRONIC DERMATITIS Past Surgical History Surgical History: Other Additional Surgical History: CATARACT Social History Does patient currently use any type of tobacco product: No Have you used tobacco products in the last 12 months: No Type of Tobacco Use: None Does any household member use tobacco: No Alcohol Use: None Medications Home Medications: amoxicillin [From Augmentin] Allergy (Verified 11/20/19 09:43) clavulanic acid [From Augmentin] Allergy (Verified 11/20/19 09:43) CONTINUE taking the following medications budesonide 1 ea NEB BIDRESP 11/20/19 [History] levalbuterol HCl 1.25 mg INHALATION Q6RESP 11/20/19 [History] rosuvastatin 10 mg PO HS 11/20/19 [History] Labs Result Diagrams: 11/21/19 03:59 11/21/19 03:59 Labs: Laboratory WBC 16.9 X10^3/uL (3.6-10.0) H D 11/21/19 03:59 RBC 4.13 X10^6/uL (4.7-6.0) L 11/21/19 03:59 Hgb 11.3 g/dL (13.5-18.0) L 11/21/19 03:59 Hct 34.6 % (42.0-54.0) L 11/21/19 03:59 MCV 84.0 fL (80.0-100.0) 11/21/19 03:59 MCH 27.5 pg (27.0-34.0) 11/21/19 03:59 MCHC 32.7 g/dL (33.0-35.0) L 11/21/19 03:59 RDW 18.0 % (11.6-16.5) H 11/21/19 03:59 Plt Count 234 X10^3/uL (150.0-450.0) 11/21/19 03:59 Plt Count Comment Adequate (ADEQUATE) 11/21/19 03:59 MPV 8.1 fL (7.4-11.0) 11/21/19 03:59 Neut % (Auto) 92.5 % (42.0-75.0) H 11/21/19 03:59 Lymph % (Auto) 4.1 % (21.0-51.0) L 11/21/19 03:59 [place] % (Auto) 3.3 % (0.0-13.0) 11/21/19 03:59 Eos % (Auto) 0.0 % (0.9-2.9) L 11/21/19 03:59 Baso % (Auto) 0.1 % (0.2-1.0) L 11/21/19 03:59 Neut # (Auto) 15.6 x10^3/uL (2.2-4.8) H 11/21/19 03:59 Lymph # (Auto) 0.7 X10^3/uL (1.3-2.9) L 11/21/19 03:59 [place] # (Auto) 0.6 x10^3/uL (0.3-0.8) 11/21/19 03:59 Eos # (Auto) 0.0 x10^3/uL (0.0-0.2) 11/21/19 03:59 Baso # (Auto) 0.0 X10^3/uL (0.0-0.1) 11/21/19 03:59 Absolute Nucleated RBC 0.0 /100WBC 11/21/19 03:59 Total Counted 100 11/21/19 03:59 Neutrophils % (Manual) 87 % (39-76) H 11/21/19 03:59 Band Neutrophils % 7 % (0-10) 11/21/19 03:59 Lymphocytes % (Manual) 6 % (13-43) L 11/21/19 03:59 Plt Morphology Comment Normal (NORMAL) 11/21/19 03:59 RBC Morphology Normal (NORMAL) 11/21/19 03:59 Sample Site Rr 11/20/19 10:30 ABG pH 7.470 (7.35-7.45) H 11/20/19 10:30 ABG pCO2 37.0 mmHg (35.0-45.0) 11/20/19 10:30 ABG pO2 61.0 mmHg (80.0-100.0) L 11/20/19 10:30 ABG HCO3 26.9 mmol/L (22-26) H 11/20/19 10:30 ABG O2 Saturation 93.0 % (90-100) 11/20/19 10:30 ABG Base Excess 3.2 mmol/L (-2.0-2.0) H 11/20/19 10:30 John Test Pos 11/20/19 10:30 A-a Gradient 178.0 mmHg 11/20/19 10:30 FiO2 40.0 11/20/19 10:30 Blood Gas Comments Nelson well cb 11/20/19 10:30 Sodium 142 mmol/L (136-145) 11/21/19 03:59 Corrected Sodium 143 mmol/L (136-145) 11/21/19 03:59 Potassium 3.7 mmol/L (3.5-5.1) 11/21/19 03:59 Chloride 106 mmol/L (98-107) 11/21/19 03:59 Carbon Dioxide 22.9 mmol/L (21-32) 11/21/19 03:59 BUN 15 mg/dL (7-18) 11/21/19 03:59 Creatinine 1.36 mg/dL (0.70-1.30) H 11/21/19 03:59 Est GFR (MDRD) Af Amer > 60 (>60) 11/21/19 03:59 Est GFR (MDRD) Non-Af 53 (>60) L 11/21/19 03:59 Glucose 148 mg/dL (65-99) H 11/21/19 03:59 Calcium 8.3 mg/dL (8.5-10.1) L 11/21/19 03:59 Corrected Calcium 9.3 mg/dL (8.5-10.1) 11/21/19 03:59 Magnesium 1.6 mg/dL (1.7-2.9) L 11/21/19 03:59 Total Bilirubin 0.40 mg/dL (0.2-1.0) 11/21/19 03:59 AST 22 Units/L (15-37) 11/21/19 03:59 ALT 24 Units/L (12-78) 11/21/19 03:59 Alkaline Phosphatase 68 Units/L (46-116) 11/21/19 03:59 Creatine Kinase 108 Units/L (39-308) 11/20/19 10:11 CK-MB (CK-2) 3.2 ng/mL (0-4.0) 11/20/19 10:11 CK/CKMB % Calc 3.0 % (<4) 11/20/19 10:11 Troponin I < 0.02 ng/mL (0-1.5) 11/20/19 10:11 Total Protein 6.5 g/dL (6.4-8.2) 11/21/19 03:59 Albumin 2.8 g/dL (3.4-5.0) L 11/21/19 03:59 Globulin 3.7 g/dL (2.5-4.5) 11/21/19 03:59 Albumin/Globulin Ratio 0.8 Ratio (1.1-2.1) L 11/21/19 03:59 Influenza Type A (PCR) Negative (NEGATIVE) 11/20/19 10:13 Influenza Type B (PCR) Negative (NEGATIVE) 11/20/19 10:13 S. pyogenes (TEM-PCR) Not detected (NOT DETECT) 11/20/19 10:13 Review of Systems Constitutional: No Symptoms Reported Eyes: No Symptoms Reported ENT: No Symptoms Reported Respiratory: Shortness of Breath and Wheezing Cardiovascular: Edema Gastrointestinal: No Symptoms Reported Genitourinary: No Symptoms Reported Musculoskeletal: No Symptoms Reported Skin: No Symptoms Reported Neurological: No Symptoms Reported Physical Exam Vital Signs: Temperature 99.0 F Pulse Rate [Apical] 88 Pulse Rate 91 Respiratory Rate 21 Blood Pressure [Right Arm] 124/74 Blood Pressure 99/58 O2 Sat by Pulse Oximetry 96 Oriented: Normal Eyes: Normal Nose: Normal Throat: Normal Respiratory: Diminished Throughout and Wheezes Throughout Cardiovascular: Normal Auscultation: Bowel Sounds: Normal Palpation: Normal Tenderness: Normal Skin: Normal Musculoskeletal: Normal Psychiatric: Normal Mood Description: Calm Affect: Normal Speech Pattern: Clear and Appropriate Assessment/Plan (1) Acute respiratory failure with hypoxia: Status: Acute Plan: AB.47/37/61/26.9 CXR: retrocardiac density likely hiatal hernia. Will repeat PA/Lat tomorrow Continue oxygen, wean as tolerated Continue IV abx, solumedrol and bronchodilators Sputum Culture pending (2) COPD with exacerbation: Status: Acute (3) ARF (acute renal failure): Qualifiers: Acute renal failure type: unspecified Qualified Code(s): N17.9 - Acute kidney failure, unspecified Status: Acute Plan: Cr trending down 1.36, monitor AM labs (4) Hypomagnesemia: Status: Acute Plan: Replace as per protocol (5) TIA (transient ischemic attack): Status: Acute Plan: resume asa, Plavix and statin Review H&P Reviewed: Yes Patient was examined?: Yes
[2019-11-21] MEDS ORDERED: ALLEGRA ONE (10:12)
[2019-11-21] MEDS: PLAVIX PO SCH (10:19)
[2019-11-21] MEDS: ALLEGRA PO SCH (10:19)
[2019-11-21] MEDS: ECOTRIN TAB 325 MG PO SCH (10:19)
[2019-11-21] MEDS: SYNTHROID 112 mcg TAB PO SCH (10:20)
[2019-11-21] MEDS: PROSCAR PO SCH (10:20)
[2019-11-21] MEDS: SOLU-Medrol 125 MG VIAL IVP SCH ×3 (10:22→21:15)
[2019-11-21] MEDS: PULMICORT NEB TX 0.5 MG NEB SCH ×2 (12:09→20:56)
[2019-11-21] MEDS: COLACE CAP 100 MG PO SCH ×2 (15:04→20:38)
[2019-11-21] MEDS: CRESTOR TAB 10 MG PO SCH (20:38)
[2019-11-21] MEDS: SINGULAIR TAB 10 MG PO SCH (20:38)
[2019-11-22] MEDS: DUONEB 0.5 MG/3 MG (3 mL) NEB SCH ×4 (00:52→17:05)
[2019-11-22 05:30] LABS: BASOPHILS % (AUTO) 0.1 % (0.2-1.0); HEMATOCRIT 35.3 % (42.0-54.0); HEMOGLOBIN 11.4 g/dL (13.5-18.0); LYMPHOCYTES # (AUTO) 0.6 X10^3/uL (1.3-2.9); MEAN CORPUSCULAR HEMOGLOBIN 27.5 pg (27.0-34.0); MEAN CORPUSCULAR HGB CONC 32.4 g/dL (33.0-35.0); MEAN PLATELET VOLUME 8.7 fL (7.4-11.0); MONOCYTES # (AUTO) 0.4 x10^3/uL (0.3-0.8); NEUTROPHILS # (AUTO) 19.1 x10^3/uL (2.2-4.8); NEUTROPHILS % (AUTO) 94.9 % (42.0-75.0); PLATELET COUNT 229 X10^3/uL (150.0-450.0); RED BLOOD COUNT 4.15 X10^6/uL (4.7-6.0); RED CELL DISTRIBUTION WIDTH 18.1 % (11.6-16.5); WHITE BLOOD COUNT 20.1 X10^3/uL (3.6-10.0)
[2019-11-22 05:46] LABS: BLOOD UREA NITROGEN 18 mg/dL (7-18); CALCIUM 8.1 mg/dL (8.5-10.1); CHLORIDE 108 mmol/L (98-107); COR NA(FOR HYPERGLY) 142 mmol/L (136-145); CREATININE 1.29 mg/dL (0.70-1.30); MAGNESIUM 2.3 mg/dL (1.7-2.9); SODIUM 141 mmol/L (136-145); eGFR NON BLACK RACES 56 (>60)
[2019-11-22 06:09] LABS: PLATELET MORPHOLOGY COMMENT NORMAL (NORMAL)
[2019-11-22] MEDS: SOLU-Medrol 125 MG VIAL IVP SCH (06:33)
--- NOTE | 2019-11-22 06:35 | RAD ---
HISTORYShortness of breathSTUDYCHVALARIE, PA/LAT [id number] heart is within normal limits in size. The shawanda are normal. The lungs are mildly hyperinflated but free of acute infiltrates. There is a hiatal hernia present. Bony thorax is unremarkable.IMPRESSIONLungs clearSmall hiatal herniaElectronically signed by: VIDAL CONTRERAS (Nov 22, 2019 06:33:45)
[2019-11-22] MEDS ORDERED: ALLEGRA ONE (08:18)
[2019-11-22] MEDS: ROCEPHIN VIAL 1 GRAM 1 G in NS 100 ML IV + SPIKE MINIBAG* 100 ML IV SCH (08:24)
[2019-11-22] MEDS: PROSCAR PO SCH (08:26)
[2019-11-22] MEDS: SYNTHROID 112 mcg TAB PO SCH (08:26)
[2019-11-22] MEDS: COLACE CAP 100 MG PO SCH ×2 (08:26→20:19)
[2019-11-22] MEDS: ECOTRIN TAB 325 MG PO SCH (08:26)
[2019-11-22] MEDS: ALLEGRA PO SCH (08:26)
[2019-11-22] MEDS: PLAVIX PO SCH (08:28)
[2019-11-22] MEDS: ZITHROMAX INJ 500 MG VIAL 500 MG in D5W 250 ML IV 250 ML IV SCH (09:11)
[2019-11-22] MEDS: PULMICORT NEB TX 0.5 MG NEB SCH ×2 (09:27→20:11)
[2019-11-22] MEDS: NORVASC TAB 5 MG PO SCH (09:42)
[2019-11-22] MEDS: PROTONIX INJ 40 MG VIAL IVP SCH (09:43)
[2019-11-22] MEDS ORDERED: MILK OF MAGNESIA PO PRN (10:40)
[2019-11-22] MEDS ORDERED: MILK OF MAGNESIA ONE (10:44)
[2019-11-22] MEDS ORDERED: SOLU-Medrol 40 MG VIAL ONE (13:45)
[2019-11-22] MEDS: SOLU-Medrol 40 MG VIAL IVP SCH ×2 (13:51→21:16)
[2019-11-22] MEDS ORDERED: SOLU-Medrol 125 MG VIAL IVP SCH (14:00)
[2019-11-22] MEDS: SINGULAIR TAB 10 MG PO SCH (20:19)
[2019-11-22] MEDS: CRESTOR TAB 10 MG PO SCH (20:19)
[2019-11-23] MEDS: DUONEB 0.5 MG/3 MG (3 mL) NEB SCH ×2 (01:02→05:38)
[2019-11-23 05:56] LABS: BLOOD UREA NITROGEN 20 mg/dL (7-18); CALCIUM 8.3 mg/dL (8.5-10.1); CARBON DIOXIDE 27.1 mmol/L (21-32); CHLORIDE 109 mmol/L (98-107); COR NA(FOR HYPERGLY) 144 mmol/L (136-145); CREATININE 1.18 mg/dL (0.70-1.30); SODIUM 143 mmol/L (136-145); eGFR NON BLACK RACES > 60 (>60)
[2019-11-23 06:07] LABS: BASOPHILS % (AUTO) 0.1 % (0.2-1.0); HEMATOCRIT 35.4 % (42.0-54.0); HEMOGLOBIN 11.5 g/dL (13.5-18.0); LYMPHOCYTES # (AUTO) 0.8 X10^3/uL (1.3-2.9); LYMPHOCYTES % (AUTO) 3.7 % (21.0-51.0); MEAN CORPUSCULAR HEMOGLOBIN 27.5 pg (27.0-34.0); MEAN CORPUSCULAR HGB CONC 32.5 g/dL (33.0-35.0); MEAN CORPUSCULAR VOLUME 84.7 fL (80.0-100.0); MEAN PLATELET VOLUME 8.3 fL (7.4-11.0); MONOCYTES # (AUTO) 0.6 x10^3/uL (0.3-0.8); MONOCYTES % (AUTO) 3.2 % (0.0-13.0); NEUTROPHILS # (AUTO) 18.8 x10^3/uL (2.2-4.8); PLATELET COUNT 223 X10^3/uL (150.0-450.0); RED BLOOD COUNT 4.18 X10^6/uL (4.7-6.0); RED CELL DISTRIBUTION WIDTH 18.1 % (11.6-16.5); WHITE BLOOD COUNT 20.2 X10^3/uL (3.6-10.0)
[2019-11-23 07:02] LABS: BAND NEUTROPHILS % 2 % (0-10); PLATELET MORPHOLOGY COMMENT NORMAL (NORMAL)
[2019-11-23] MEDS ORDERED: ALLEGRA ONE (08:37)
[2019-11-23] MEDS: PROSCAR PO SCH (08:48)
[2019-11-23] MEDS: COLACE CAP 100 MG PO SCH (08:48)
[2019-11-23] MEDS: PROTONIX INJ 40 MG VIAL IVP SCH (08:48)
[2019-11-23] MEDS: ALLEGRA PO SCH (08:49)
[2019-11-23] MEDS: SYNTHROID 112 mcg TAB PO SCH (08:52)
[2019-11-23] MEDS: PLAVIX PO SCH (08:52)
[2019-11-23] MEDS: ROCEPHIN VIAL 1 GRAM 1 G in NS 100 ML IV + SPIKE MINIBAG* 100 ML IV SCH (08:52)
[2019-11-23] MEDS: NORVASC TAB 5 MG PO SCH (08:52)
[2019-11-23] MEDS: ECOTRIN TAB 325 MG PO SCH (08:52)
[2019-11-23 08:58] LABS: ABG ALLEN TEST POS; ABG BASE EXCESS 1.5 mmol/L (-2.0-2.0); ABG HCO3 24.6 mmol/L (22-26)
[2019-11-23] MEDS: PULMICORT NEB TX 0.5 MG NEB SCH (09:20)
[2019-11-23] MEDS: ZITHROMAX INJ 500 MG VIAL 500 MG in D5W 250 ML IV 250 ML IV SCH (09:33)
[2019-11-23 10:08] VITALS: BP 126/65
== END 2019-11-23 12:15 | disposition home or self-care (01) | DRG 190 ==
LOC: ER 09:39 → ICU 12:07
PROVIDERS: ADMIT Internal Medicine; ATTEND Internal Medicine
DX: R94.31 Abnormal electrocardiogram [ECG] [EKG]; N17.8 Other acute kidney failure; J96.01 Acute respiratory failure with hypoxia; K44.9 Diaphragmatic hernia without obstruction or gangrene; J44.1 Chronic obstructive pulmonary disease with (acute) exacerbation; Z99.81 Dependence on supplemental oxygen; J44.0 Chronic obstructive pulmonary disease with (acute) lower respiratory infection; R26.89 Other abnormalities of gait and mobility; E83.42 Hypomagnesemia; Z86.73 Personal history of transient ischemic attack (TIA), and cerebral infarction without residual deficits; J20.9 Acute bronchitis, unspecified
CPT/HCPCS: 36415; 36600; 71010; 71020; 71045; 71046; 80048; 80053; 82550; 82553; 82803; 83735; 84484; 85025; 87070; 87205; 87502; 87651; 93005; 94640; 96365; 96367; 96374; 96375; 97162; 97166; 99284; A4222; C9113; S0138; J0456; J0696; J2920; J2930; J3475; J7030; J7050; J7060; J7620; J7626

== ENCOUNTER 2021-05-12 11:19 | Inpatient (IN) ==
[2021-05-12 11:39] VITALS: BMI 27.5
--- NOTE | 2021-05-12 11:57 | DR.DIZZY ---
HPI Time seen Time Seen by Provider: 05/12/21 11:41 PCP Primary Care Physician: ira HPI Comment HPI Comment: Woke this morning unable to close his rt hand which was numb as below; no acute injury, redness or actual pain; he cannot move individual fing ers but can only make a partial fist; he's had mini strokes in the past which manifested with blurry vision; none today and no dysarthria, dysphagia, ataxia, ruelas, dizziness, neck pain or arm/leg weakness. Complaint Chief Complaint:: woke this am with numbness to the right hand and difficulty with grasp. woke at 6am with the symptoms. no other symptoms. concerned with ministroke COVID-19 Has patient experienced Coronavirus symptoms: No Nurses Notes Reviewed Nurses Notes Review: Yes Source History Provided: Patient, Family Member and Significant Other Mode of Arrival Mode of Arrival: Ambulatory Timing Onset of Chief Complaint: 05/12/21 Symptom Onset: Known Onset of Symptoms Start Date: 05/12/21 Onset of Symptoms Start Time: 06:00 Location of Weakness Weakness Location: Right Context History of: TIA Stroke Symptoms: Weakness of limb and Numbness of limbs Associated signs and symptoms Associated Signs and Symptoms: Normal PMH PMH Past Medical History: Yes Past Medical History: Asthma, COPD, Dyslipidemia and Hypothyroidism Past Medical History Comment: mini stroke Past Surgical History: Yes Surgical History: Other Past Surgical History Comment: back surgery and prostrate Family History History of Family Medical Conditions: Yes Family Medical History: Cancer and Coronary Artery Disease Social History Alcohol Use: None Do you use any recreational Drugs:: No Lives With: Spouse Lives Where: Home Travel Risk Coronavirus risk:travel/contact w/high risk person: No Has patient experienced Coronavirus symptoms: No Infectious screening In the last 2 months have you had wt loss of >10#?: NO Have you had fever, night sweats or hemotysis?: No Have you traveled outside the country in the last 6 months?: No Isolation: Standard ROS Review of Systems Constitutional: No Symptoms Reported Eyes: No Symptoms Reported ENTM: No Symptoms Reported Respiratoy: No Symptoms Reported Cardiovascular: No Symptoms Reported Gastrointestinal/Abdominal: No Symptoms Reported Genitourinary: No Symptoms Reported Integumentary: No Symptoms Reported Hematologic/Lymphatic: No Symptoms Reported Endocrine: No Symptoms Reported Psychiatric: No Symptoms Reported PE Vital Signs Vitals: Temperature 97.6 F Pulse Rate 105 Respiratory Rate 16 Blood Pressure [Right Arm] 124/74 Blood Pressure 127/75 O2 Sat by Pulse Oximetry 94 General Limitations: No Limitations General Appearance: Alert and In No Apparent Distress Head Head Exam: Normal Inspection Eyes Eye exam: Normal Appearance ENT ENT Exam: Normal Exam, Normal Oropharynx and Normal External Ear Exam Neck Neck Exam: Normal Inspection and Full ROM Chest Chest Inspection: Normal Inspection Respiratory Respiratory Exam: Normal Lung Sounds Bilat Cardiovascular Cardiovascular Exam: Regular Rate and Normal Rhythm Abdominal Exam Abdominal Exam: Normal Inspection, Normal Bowel Sounds and Soft Back Back Exam: Normal Inspection and Full ROM Neurologic Neurological Exam: Alert, CN II-XII Intact and Normal Gait Patient Oriented To: Person, Place and Time Speech: Fluid Speech Motor Strength - RLE: 2/5 Psychiatric Psychiatric Exam: Normal Affect and Normal Mood Skin Skin Exam: Other (scattered bruises) Other Exam Other Exam: hand brim pouncer 2-3/5 rt, otherwise wnl MDM Differential Diagnosis Differential Diagnosis: CVA, Dehydration and TIA COURSE Consultation Call Returned: 13:00 (Dr Ewing accepts admission) ROR Labs Reviewed Laboratory Results Reviewed?: Yes Result Diagrams: 05/12/21 11:50 05/12/21 11:50 Laboratory: WBC 9.9 X10^3/uL (3.6-10.0) 05/12/21 11:50 RBC 5.72 X10^6/uL (4.7-6.0) 05/12/21 11:50 Hgb 14.2 g/dL (13.5-18.0) 05/12/21 11:50 Hct 44.4 % (42.0-54.0) 05/12/21 11:50 MCV 77.6 fL (80.0-100.0) L 05/12/21 11:50 MCH 24.8 pg (27.0-34.0) L 05/12/21 11:50 MCHC 32.0 g/dL (33.0-35.0) L 05/12/21 11:50 RDW 28.2 % (11.6-16.5) H 05/12/21 11:50 Plt Count 227 X10^3/uL (150.0-450.0) 05/12/21 11:50 Plt Count Comment Adequate (ADEQUATE) 05/12/21 11:50 MPV 8.6 fL (7.4-11.0) 05/12/21 11:50 Neut % (Auto) 76.1 % (42.0-75.0) H 05/12/21 11:50 Lymph % (Auto) 13.7 % (21.0-51.0) L 05/12/21 11:50 [place] % (Auto) 6.1 % (0.0-13.0) 05/12/21 11:50 Eos % (Auto) 3.1 % (0.9-2.9) H 05/12/21 11:50 Baso % (Auto) 1.0 % (0.2-1.0) 05/12/21 11:50 Neut # (Auto) 7.5 x10^3/uL (2.2-4.8) H 05/12/21 11:50 Lymph # (Auto) 1.4 X10^3/uL (1.3-2.9) 05/12/21 11:50 [place] # (Auto) 0.6 x10^3/uL (0.3-0.8) 05/12/21 11:50 Eos # (Auto) 0.3 x10^3/uL (0.0-0.2) H 05/12/21 11:50 Baso # (Auto) 0.1 X10^3/uL (0.0-0.1) 05/12/21 11:50 Absolute Nucleated RBC 0.0 /100WBC 05/12/21 11:50 Plt Morphology Comment Normal (NORMAL) 05/12/21 11:50 RBC Morphology Abnormal (NORMAL) 05/12/21 11:50 Dimorphic RBCs Present 05/12/21 11:50 Hypochromasia Slight A 05/12/21 11:50 Poikilocytosis Slight A 05/12/21 11:50 Anisocytosis 3+ A 05/12/21 11:50 Microcytosis 1+ A 05/12/21 11:50 Target Cells Slight A 05/12/21 11:50 Ovalocytes Slight A 05/12/21 11:50 Sodium 144 mmol/L (136-145) 05/12/21 11:50 Corrected Sodium 144 mmol/L (136-145) 05/12/21 11:50 Potassium 4.2 mmol/L (3.5-5.1) 05/12/21 11:50 Chloride 108 mmol/L (98-107) H 05/12/21 11:50 Carbon Dioxide 27.2 mmol/L (21-32) 05/12/21 11:50 BUN 16 mg/dL (7-18) 05/12/21 11:50 Creatinine 1.63 mg/dL (0.70-1.30) H 05/12/21 11:50 Est GFR (MDRD) Af Amer 52 (>60) L 05/12/21 11:50 Est GFR (MDRD) Non-Af 43 (>60) L 05/12/21 11:50 Glucose 114 mg/dL (65-99) H 05/12/21 11:50 Calcium 9.6 mg/dL (8.5-10.1) 05/12/21 11:50 Corrected Calcium TNP 05/12/21 11:50 Total Bilirubin 0.40 mg/dL (0.2-1.0) 05/12/21 11:50 AST 32 Units/L (15-37) 05/12/21 11:50 ALT 41 Units/L (12-78) 05/12/21 11:50 Alkaline Phosphatase 69 Units/L (46-116) 05/12/21 11:50 Total Protein 7.5 g/dL (6.4-8.2) 05/12/21 11:50 Albumin 3.6 g/dL (3.4-5.0) 05/12/21 11:50 Globulin 3.9 g/dL (2.5-4.5) 05/12/21 11:50 Albumin/Globulin Ratio 0.9 Ratio (1.1-2.1) L 05/12/21 11:50 Other Results Comments: pt with evolving cva in rt cerebellum with rt sided symptoms; admit for monitoring/further evaluation XRAY XRAY Interpreted by: Radiologist X-ray Results: ct head: Wedge-shaped 1 cm hypodensity in the right cerebellar hemisphere which is concerning for an evolving ischemic event/CVA. There is a chronic appearing right basal ganglial lacunar ischemic event. Follow-up with MR imaging of the brain with diffusion-weighted sequencing is recommended to evaluate for acute ischemia in this setting. No acute intracranial hemorrhage is seen. Chronic white matter disease. 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
[2021-05-12 12:04] LABS: BASOPHILS # (AUTO) 0.1 X10^3/uL (0.0-0.1); EOSINOPHILS # (AUTO) 0.3 x10^3/uL (0.0-0.2); EOSINOPHILS % (AUTO) 3.1 % (0.9-2.9); HEMATOCRIT 44.4 % (42.0-54.0); HEMOGLOBIN 14.2 g/dL (13.5-18.0); LYMPHOCYTES # (AUTO) 1.4 X10^3/uL (1.3-2.9); LYMPHOCYTES % (AUTO) 13.7 % (21.0-51.0); MEAN CORPUSCULAR HEMOGLOBIN 24.8 pg (27.0-34.0); MEAN CORPUSCULAR VOLUME 77.6 fL (80.0-100.0); MEAN PLATELET VOLUME 8.6 fL (7.4-11.0); MONOCYTES # (AUTO) 0.6 x10^3/uL (0.3-0.8); MONOCYTES % (AUTO) 6.1 % (0.0-13.0); NEUTROPHILS # (AUTO) 7.5 x10^3/uL (2.2-4.8); NEUTROPHILS % (AUTO) 76.1 % (42.0-75.0); PLATELET COUNT 227 X10^3/uL (150.0-450.0); RED BLOOD COUNT 5.72 X10^6/uL (4.7-6.0); RED CELL DISTRIBUTION WIDTH 28.2 % (11.6-16.5); WHITE BLOOD COUNT 9.9 X10^3/uL (3.6-10.0)
--- NOTE | 2021-05-12 12:10 | CT ---
HISTORYrt hand weakness[Altered mental status]Noncontrast head CT examination.Comparison: No recent priors.Technique:Multiple axial images of the brain were obtained from the skull base to the vertex without administration of IV contrast.Findings:There is a wedge-shaped 1 cm hypodensity in the right cerebellar hemisphere which is concerning for an evolving ischemic event/CVA. There is a chronic appearing right basal ganglial lacunar ischemic event. Follow-up with MR imaging of the brain with diffusion-weighted sequencing is recommended to evaluate for acute ischemia in this setting. No acute intracranial hemorrhage is seen. There is moderate sulcal and cisternal prominence as well as atherosclerotic change in the proximal intracranial carotid and vertebral arteries, which is not out of proportion to the patient's stated age. There is diffuse CT density alteration seen in the periventricular white matter of the high and mid-convexity, which is likely in the setting of small vessel disease and not out of proportion to the patient's stated age. There is [mild bilateral ex vacuo] ventricular dilatation without evidence for hydrocephalus or herniation syndrome. No midline shift is evident. No acute intraparenchymal hemorrhage or mass can be identified. If there remains a strong concern for any intra-cranial neoplasm, then follow-up with CT or MR imaging of the brain would be more sensitive to exclude any intra-cranial mass lesion. No extra-axial fluid collections are seen. No alteration in the attenuation of the brain parenchyma can be identified to suggest acute or subacute ischemic change. However, if clinical symptoms are concerning for an acute CVA, then follow-up MRI with DWI sequencing is recommended. The extracranial structures [are unremarkable].IMPRESSION:Wedge-shaped 1 cm hypodensity in the right cerebellar hemisphere which is concerning for an evolving ischemic event/CVA. There is a chronic appearing right basal ganglial lacunar ischemic event. Follow-up with MR imaging of the brain with diffusion-weighted sequencing is recommended to evaluate for acute ischemia in this setting. No acute intracranial hemorrhage is seen. Chronic white matter disease.Electronically signed by: MARGIE NIXON III (May 12, 2021 12:07:31)
[2021-05-12 12:11] LABS: ALANINE AMINOTRANSFERASE 41 Units/L (12-78); ALBUMIN 3.6 g/dL (3.4-5.0); ALKALINE PHOSPHATASE 69 Units/L (46-116); ASPARTATE AMINO TRANSFERASE 32 Units/L (15-37); BLOOD UREA NITROGEN 16 mg/dL (7-18); CALCIUM 9.6 mg/dL (8.5-10.1); CARBON DIOXIDE 27.2 mmol/L (21-32); CHLORIDE 108 mmol/L (98-107); COR NA(FOR HYPERGLY) 144 mmol/L (136-145); CREATININE 1.63 mg/dL (0.70-1.30); SODIUM 144 mmol/L (136-145); TOTAL PROTEIN 7.5 g/dL (6.4-8.2); eGFR NON BLACK RACES 43 (>60)
[2021-05-12 12:17] LABS: HYPOCHROMASIA SLIGHT; PLATELET MORPHOLOGY COMMENT NORMAL (NORMAL)
[2021-05-12 12:18] LABS: ANISOCYTOSIS 3+; MICROCYTOSIS 1+; POIKILOCYTOSIS SLIGHT
[2021-05-12 12:19] LABS: OVALOCYTES SLIGHT; TARGET CELLS SLIGHT
[2021-05-12] MEDS: NS 1000 ML 1,000 ML IV SCH (14:26)
[2021-05-12] MEDS: PLAVIX PO SCH (14:26)
[2021-05-12] MEDS ORDERED: XOPENEX 1.25 MG/3 ML NEBULE NEB ONE (16:17)
[2021-05-12] MEDS: XOPENEX 1.25 MG/3 ML NEBULE NEB SCH (16:20)
[2021-05-12 18:01] LABS: BILIRUBIN,URINE NEGATIVE (NEGATIVE); BLOOD/HEMOGLOBIN,URINE 1+ (NEGATIVE); GLUCOSE, URINE NEGATIVE (NEGATIVE); KETONES,URINE NEGATIVE (NEGATIVE); LEUKOCYTE ESTERASE ,URINE 3+ (NEGATIVE); NITRITES,URINE NEGATIVE (NEGATIVE); PROTEIN,URINE 2+ (NEGATIVE); UROBILINOGEN,URINE NORMAL (NORMAL)
[2021-05-12 18:08] LABS: APPEARANCE,URINE SLIGHTLY HAZY (CLEAR); BACTERIA,URINE 2+ /HPF (NEGATIVE); COLOR,URINE YELLOW (YELLOW); MUCUS,URINE MODERATE /HPF (NEGATIVE); SQUAMOUS EPITHELIAL CELL,UR FEW /HPF (NEGATIVE)
[2021-05-12] MEDS ORDERED: ALLEGRA ONE (20:39)
[2021-05-12] MEDS ORDERED: CRESTOR TAB 10 MG PO SCH (21:00)
[2021-05-12] MEDS: SINGULAIR TAB 10 MG PO SCH (21:05)
[2021-05-12] MEDS: ALLEGRA PO SCH (21:05)
[2021-05-13] MEDS: XOPENEX 1.25 MG/3 ML NEBULE NEB SCH ×4 (00:10→17:04)
[2021-05-13] MEDS: NS 1000 ML 1,000 ML IV SCH ×2 (03:45→15:15)
[2021-05-13 04:52] LABS: BASOPHILS # (AUTO) 0.1 X10^3/uL (0.0-0.1); BASOPHILS % (AUTO) 0.9 % (0.2-1.0); EOSINOPHILS # (AUTO) 0.6 x10^3/uL (0.0-0.2); EOSINOPHILS % (AUTO) 7.6 % (0.9-2.9); HEMATOCRIT 39.1 % (42.0-54.0); HEMOGLOBIN 12.7 g/dL (13.5-18.0); LYMPHOCYTES # (AUTO) 1.7 X10^3/uL (1.3-2.9); LYMPHOCYTES % (AUTO) 21.1 % (21.0-51.0); MEAN CORPUSCULAR HEMOGLOBIN 25.1 pg (27.0-34.0); MEAN CORPUSCULAR HGB CONC 32.5 g/dL (33.0-35.0); MEAN CORPUSCULAR VOLUME 77.3 fL (80.0-100.0); MEAN PLATELET VOLUME 8.6 fL (7.4-11.0); MONOCYTES # (AUTO) 0.7 x10^3/uL (0.3-0.8); MONOCYTES % (AUTO) 8.3 % (0.0-13.0); NEUTROPHILS % (AUTO) 62.1 % (42.0-75.0); PLATELET COUNT 191 X10^3/uL (150.0-450.0); RED BLOOD COUNT 5.06 X10^6/uL (4.7-6.0); WHITE BLOOD COUNT 8.1 X10^3/uL (3.6-10.0)
[2021-05-13 05:06] LABS: ALANINE AMINOTRANSFERASE 35 Units/L (12-78); ALBUMIN 2.8 g/dL (3.4-5.0); ALKALINE PHOSPHATASE 56 Units/L (46-116); ASPARTATE AMINO TRANSFERASE 30 Units/L (15-37); BLOOD UREA NITROGEN 14 mg/dL (7-18); CALCIUM 8.9 mg/dL (8.5-10.1); CARBON DIOXIDE 26.4 mmol/L (21-32); CHLORIDE 111 mmol/L (98-107); COR CA(FOR HYPOALB) 9.9 mg/dL (8.5-10.1); CREATININE 1.45 mg/dL (0.70-1.30); SODIUM 146 mmol/L (136-145); TOTAL PROTEIN 6.1 g/dL (6.4-8.2); eGFR NON BLACK RACES 49 (>60)
[2021-05-13 05:39] LABS: HYPOCHROMASIA SLIGHT; PLATELET MORPHOLOGY COMMENT NORMAL (NORMAL)
[2021-05-13 05:40] LABS: ANISOCYTOSIS 3+; MICROCYTOSIS 1+; OVALOCYTES PRESENT; TARGET CELLS PRESENT
[2021-05-13] MEDS ORDERED: ASPIRIN PO SCH (09:00)
--- NOTE | 2021-05-13 11:11 | DR.H&P ---
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 He was also not able to fully extend his fingers. He denies any other symptoms. In the ED, Labs/imaging: Wbc 8.1, Hgb 12.7, Plt 191, Na 146, K 3.7, Creatinine 1.45, Glucose 86, CT brain was obtained that revealed: Wedge-shaped 1 cm hypodensity in the right cerebellar hemisphere which is concerning for an evolving ischemic event/CVA. There is a chronic appearing right basal ganglia lacunar ischemic event. Follow-up with MR imaging of the brain with diffusion-weighted sequencing is recommended to evaluate for acute ischemia in this setting. No acute intracranial hemorrhage is seen. Chronic white matter disease. On exam patient continues to have weak manager commercial sales strength of his right hand. It is unusual given the symptoms that acute infarct is also on right side shown on CT brain. Will order Neuro checks, MRI/MRA brain, Echo, Carotid U/S, PT/OT. Start on ASA 325mg and Plavix 75mg, increase home Rosuvastatin to 20mg. Resume home medications. Will continue to monitor patient and follow up labs/imaging. Time spent on clinical assessment, reviewing labs and imaging, decision making, and documentation greater than 75 minutes. Past Medical History Past Medical History: Asthma, COPD, Dyslipidemia and Hypothyroidism Additional Medical History: ALLERGIES, CHRONIC DERMATITIS Past Surgical History Surgical History: Other Additional Surgical History: CATARACT Family History Family Medical History: Cancer and Coronary Artery Disease Social History Does patient currently use any type of tobacco product: No Have you used tobacco products in the last 12 months: No Type of Tobacco Use: None Does any household member use tobacco: No Alcohol Use: None Drug Use: None Medications Home Medications: amoxicillin [From Augmentin] Allergy (Verified 05/12/21 11:29) clavulanic acid [From Augmentin] Allergy (Verified 05/12/21 11:29) CONTINUE taking the following medications aspirin [Aspirin Low Dose] 81 mg PO DAILY 05/12/21 [History] Labs Result Diagrams: 05/13/21 04:31 05/13/21 04:31 Labs: 05/12/21 17:48 Urine,Clean Catch Urine Culture - Preliminary Laboratory WBC 8.1 X10^3/uL (3.6-10.0) 05/13/21 04:31 RBC 5.06 X10^6/uL (4.7-6.0) 05/13/21 04:31 Hgb 12.7 g/dL (13.5-18.0) L 05/13/21 04:31 Hct 39.1 % (42.0-54.0) L 05/13/21 04:31 MCV 77.3 fL (80.0-100.0) L 05/13/21 04:31 MCH 25.1 pg (27.0-34.0) L 05/13/21 04:31 MCHC 32.5 g/dL (33.0-35.0) L 05/13/21 04:31 RDW 28.0 % (11.6-16.5) H 05/13/21 04:31 Plt Count 191 X10^3/uL (150.0-450.0) 05/13/21 04:31 Plt Count Comment Adequate (ADEQUATE) 05/13/21 04:31 MPV 8.6 fL (7.4-11.0) 05/13/21 04:31 Neut % (Auto) 62.1 % (42.0-75.0) 05/13/21 04:31 Lymph % (Auto) 21.1 % (21.0-51.0) 05/13/21 04:31 [place] % (Auto) 8.3 % (0.0-13.0) 05/13/21 04:31 Eos % (Auto) 7.6 % (0.9-2.9) H 05/13/21 04:31 Baso % (Auto) 0.9 % (0.2-1.0) 05/13/21 04:31 Neut # (Auto) 5.0 x10^3/uL (2.2-4.8) H 05/13/21 04:31 Lymph # (Auto) 1.7 X10^3/uL (1.3-2.9) 05/13/21 04:31 [place] # (Auto) 0.7 x10^3/uL (0.3-0.8) 05/13/21 04:31 Eos # (Auto) 0.6 x10^3/uL (0.0-0.2) H 05/13/21 04:31 Baso # (Auto) 0.1 X10^3/uL (0.0-0.1) 05/13/21 04:31 Absolute Nucleated RBC 0.0 /100WBC 05/13/21 04:31 Plt Morphology Comment Normal (NORMAL) 05/13/21 04:31 RBC Morphology Abnormal (NORMAL) 05/13/21 04:31 Dimorphic RBCs Present 05/13/21 04:31 Hypochromasia Slight A 05/13/21 04:31 Poikilocytosis Slight A 05/12/21 11:50 Anisocytosis 3+ A 05/13/21 04:31 Microcytosis 1+ A 05/13/21 04:31 Target Cells Present 05/13/21 04:31 Ovalocytes Present 05/13/21 04:31 Sodium 146 mmol/L (136-145) H 05/13/21 04:31 Corrected Sodium TNP 05/13/21 04:31 Potassium 3.7 mmol/L (3.5-5.1) 05/13/21 04:31 Chloride 111 mmol/L (98-107) H 05/13/21 04:31 Carbon Dioxide 26.4 mmol/L (21-32) 05/13/21 04:31 BUN 14 mg/dL (7-18) 05/13/21 04:31 Creatinine 1.45 mg/dL (0.70-1.30) H 05/13/21 04:31 Est GFR (MDRD) Af Amer 59 (>60) 05/13/21 04:31 Est GFR (MDRD) Non-Af 49 (>60) L 05/13/21 04:31 Glucose 86 mg/dL (65-99) 05/13/21 04:31 POC Glucose (mg/dL) 105 mg/dL (65-99) H 05/12/21 21:02 Calcium 8.9 mg/dL (8.5-10.1) 05/13/21 04:31 Corrected Calcium 9.9 mg/dL (8.5-10.1) 05/13/21 04:31 Total Bilirubin 0.50 mg/dL (0.2-1.0) 05/13/21 04:31 AST 30 Units/L (15-37) 05/13/21 04:31 ALT 35 Units/L (12-78) 05/13/21 04:31 Alkaline Phosphatase 56 Units/L (46-116) 05/13/21 04:31 Total Protein 6.1 g/dL (6.4-8.2) L 05/13/21 04:31 Albumin 2.8 g/dL (3.4-5.0) L 05/13/21 04:31 Globulin 3.3 g/dL (2.5-4.5) 05/13/21 04:31 Albumin/Globulin Ratio 0.8 Ratio (1.1-2.1) L 05/13/21 04:31 Specimen Type Clean catch urine 05/12/21 17:48 Urine Color Yellow (YELLOW) 05/12/21 17:48 Urine Appearance Slightly hazy (CLEAR) 05/12/21 17:48 Urine pH 6.0 (5.0 - 8.0) 05/12/21 17:48 Ur Specific [place] 1.025 (1.000-1.030) 05/12/21 17:48 Urine Protein 2+ (NEGATIVE) 05/12/21 17:48 Urine Glucose (UA) Negative (NEGATIVE) 05/12/21 17:48 Urine Ketones Negative (NEGATIVE) 05/12/21 17:48 Urine Occult Blood 1+ (NEGATIVE) 05/12/21 17:48 Urine Nitrite Negative (NEGATIVE) 05/12/21 17:48 Urine Bilirubin Negative (NEGATIVE) 05/12/21 17:48 Urine Urobilinogen Normal (NORMAL) 05/12/21 17:48 Ur Leukocyte Esterase 3+ (NEGATIVE) 05/12/21 17:48 Urine RBC 3-5 /HPF (0-3) A 05/12/21 17:48 Urine WBC 10-20 /HPF (0-5) A 05/12/21 17:48 Ur Squamous Epith Cells Few /HPF (NEGATIVE) 05/12/21 17:48 Urine Bacteria 2+ /HPF (NEGATIVE) 05/12/21 17:48 Urine Mucus Moderate /HPF (NEGATIVE) 05/12/21 17:48 Ur Culture Indicated? Yes/culture set up 05/12/21 17:48 Review of Systems Constitutional: No Symptoms Reported Eyes: No Symptoms Reported ENT: No Symptoms Reported Respiratory: No Symptoms Reported Cardiovascular: No Symptoms Reported Gastrointestinal: No Symptoms Reported Genitourinary: No Symptoms Reported Musculoskeletal: No Symptoms Reported Skin: No Symptoms Reported Neurological: Weakness (right hand); denies Numbness, Incoordination, Change in Speech and Confusion Physical Exam Vital Signs: Temperature 97.8 F Pulse Rate [Right] 85 Pulse Rate [Right Radial] 69 Pulse Rate [Left Brachial] 46 Pulse Rate 71 Respiratory Rate 24 Blood Pressure [Left Arm] 137/76 Blood Pressure [Right Arm] 120/70 Blood Pressure 120/70 O2 Sat by Pulse Oximetry 94 Oriented: Normal Eyes: Normal Ear: Normal Nose: Normal Throat: Normal Respiratory: Clear Throughout Cardiovascular: Normal : Normal Auscultation: Bowel Sounds: Normal Palpation: Normal Tenderness: Normal Skin: Normal Musculoskeletal: Right and Hand (slight flexion of fingers, more on 2nd finger, manager commercial sales strength 2/5) Psychiatric: Normal Mood Description: Calm and Appropriate Affect: Normal Speech Pattern: Clear and Appropriate Assessment/Plan (1) Acute CVA (cerebrovascular accident): Status: Acute Plan: Neuro checks, MRI/MRA brain ordered, PT/OT Echo, Carotid U/S (2) Right hand weakness: Status: Acute (3) Hypothyroidism (acquired): Status: Acute Review H&P Reviewed: Yes Patient was examined?: Yes
[2021-05-13] MEDS: PLAVIX PO SCH (11:39)
[2021-05-13] MEDS: SYNTHROID 112 mcg TAB PO SCH (16:15)
[2021-05-13] MEDS ORDERED: ALLEGRA ONE (20:03)
[2021-05-13] MEDS: COLACE CAP 100 MG PO SCH (20:42)
[2021-05-13] MEDS: CRESTOR TAB 10 MG PO SCH (20:42)
[2021-05-13] MEDS: ALLEGRA PO SCH (20:42)
[2021-05-13] MEDS: SINGULAIR TAB 10 MG PO SCH (20:42)
[2021-05-14] MEDS: XOPENEX 1.25 MG/3 ML NEBULE NEB SCH ×4 (00:30→17:04)
[2021-05-14] MEDS: NS 1000 ML 1,000 ML IV SCH ×3 (04:20→18:26)
[2021-05-14 04:41] LABS: BASOPHILS # (AUTO) 0.1 X10^3/uL (0.0-0.1); BASOPHILS % (AUTO) 1.1 % (0.2-1.0); EOSINOPHILS # (AUTO) 0.6 x10^3/uL (0.0-0.2); EOSINOPHILS % (AUTO) 7.6 % (0.9-2.9); HEMATOCRIT 37.6 % (42.0-54.0); HEMOGLOBIN 12.3 g/dL (13.5-18.0); LYMPHOCYTES # (AUTO) 1.3 X10^3/uL (1.3-2.9); LYMPHOCYTES % (AUTO) 15.1 % (21.0-51.0); MEAN CORPUSCULAR HGB CONC 32.6 g/dL (33.0-35.0); MEAN CORPUSCULAR VOLUME 76.5 fL (80.0-100.0); MEAN PLATELET VOLUME 8.6 fL (7.4-11.0); MONOCYTES # (AUTO) 0.7 x10^3/uL (0.3-0.8); MONOCYTES % (AUTO) 8.9 % (0.0-13.0); NEUTROPHILS # (AUTO) 5.6 x10^3/uL (2.2-4.8); NEUTROPHILS % (AUTO) 67.3 % (42.0-75.0); PLATELET COUNT 194 X10^3/uL (150.0-450.0); RED BLOOD COUNT 4.91 X10^6/uL (4.7-6.0); WHITE BLOOD COUNT 8.3 X10^3/uL (3.6-10.0)
[2021-05-14 04:53] LABS: ALANINE AMINOTRANSFERASE 34 Units/L (12-78); ALBUMIN 2.7 g/dL (3.4-5.0); ALKALINE PHOSPHATASE 57 Units/L (46-116); ASPARTATE AMINO TRANSFERASE 32 Units/L (15-37); BLOOD UREA NITROGEN 11 mg/dL (7-18); CALCIUM 8.2 mg/dL (8.5-10.1); CARBON DIOXIDE 24.2 mmol/L (21-32); CHLORIDE 112 mmol/L (98-107); COR CA(FOR HYPOALB) 9.2 mg/dL (8.5-10.1); CREATININE 1.45 mg/dL (0.70-1.30); SODIUM 145 mmol/L (136-145); TOTAL PROTEIN 5.9 g/dL (6.4-8.2); eGFR NON BLACK RACES 49 (>60)
[2021-05-14 05:05] LABS: ANISOCYTOSIS 3+; HYPOCHROMASIA SLIGHT; MICROCYTOSIS 1+; OVALOCYTES PRESENT; PLATELET MORPHOLOGY COMMENT NORMAL (NORMAL); TARGET CELLS PRESENT
--- NOTE | 2021-05-14 08:14 | PCM.PROG ---
Progress Note Progress Note for Day of Date of Exam: 05/14/21 Subjective Subjective: Pt is a 85 year old male past medical history of CVA, COPD, Asthma, Hypothyroidism, admitted for acute CVA. 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 Labs/imaging: Wbc 8.3, Hgb 12.3, Plt 194, Na 145, K 3.8, Creatinine 1.45, Glucose 83, CT brain was obtained that revealed: Wedge-shaped 1 cm hypodensity in the right cerebellar hemisphere which is concerning for an evolving ischemic event/CVA. There is a chronic appearing right basal ganglia lacunar ischemic event. Follow-up with MR imaging of the brain with diffusion-weighted sequencing is recommended to evaluate for acute ischemia in this setting. No acute intracranial hemorrhage is seen. Chronic whit e matter disease. Will continue Neuro checks, MRI/MRA brain, Echo, Carotid U/S, PT/OT has been ordered, will follow up results. Continue to monitor and follow up labs/imaging. Past Medical Family Social History Past Med/Fam/Surg Hx: No changes since H&P Allergies: Allergies amoxicillin [From Augmentin] Allergy (Verified 05/12/21 11:29) clavulanic acid [From Augmentin] Allergy (Verified 05/12/21 11:29) Review of Systems ROS: No change since H&P Vital Signs and I&O's Vital Signs: Temperature 98.4 F Pulse Rate [Right] 76 Pulse Rate [Right Radial] 69 Pulse Rate [Left Brachial] 46 Pulse Rate 83 Respiratory Rate 28 Blood Pressure [Left Arm] 139/73 Blood Pressure [Right Arm] 120/70 Blood Pressure 120/70 O2 Sat by Pulse Oximetry 98 Intake and Output: Intake & Output 05/11/21 05/12/21 05/13/21 05/14/21 23:59 23:59 23:59 23:59 Intake Total 200 / 200 2799 / 2799 424 / 424 Output Total 0 / 0 625 / 625 165 / 165 Balance 200 / 200 2174 / 2174 259 / 259 Physical Exam Oriented: Normal Eyes: Normal Ear: Normal Nose: Normal Throat: Normal Respiratory: Diminished Cardiovascular: Normal : Normal Auscultation: Bowel Sounds: Normal Tenderness: Normal Skin: Normal Musculoskeletal: Right and Hand (slight flexion of fingers, more on 2nd finger, 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) Psychiatric: Normal Mood Description: Calm Affect: Normal Speech Pattern: Clear and Appropriate Laboratory and Diagnostics Result Diagrams: 05/14/21 03:59 05/14/21 03:59 Labs: 05/12/21 17:48 Urine,Clean Catch Urine Culture - Preliminary Laboratory WBC 8.3 X10^3/uL (3.6-10.0) 05/14/21 03:59 RBC 4.91 X10^6/uL (4.7-6.0) 05/14/21 03:59 Hgb 12.3 g/dL (13.5-18.0) L 05/14/21 03:59 Hct 37.6 % (42.0-54.0) L 05/14/21 03:59 MCV 76.5 fL (80.0-100.0) L 05/14/21 03:59 MCH 25.0 pg (27.0-34.0) L 05/14/21 03:59 MCHC 32.6 g/dL (33.0-35.0) L 05/14/21 03:59 RDW 28.0 % (11.6-16.5) H 05/14/21 03:59 Plt Count 194 X10^3/uL (150.0-450.0) 05/14/21 03:59 Plt Count Comment Adequate (ADEQUATE) 05/14/21 03:59 MPV 8.6 fL (7.4-11.0) 05/14/21 03:59 Neut % (Auto) 67.3 % (42.0-75.0) 05/14/21 03:59 Lymph % (Auto) 15.1 % (21.0-51.0) L 05/14/21 03:59 [place] % (Auto) 8.9 % (0.0-13.0) 05/14/21 03:59 Eos % (Auto) 7.6 % (0.9-2.9) H 05/14/21 03:59 Baso % (Auto) 1.1 % (0.2-1.0) H 05/14/21 03:59 Neut # (Auto) 5.6 x10^3/uL (2.2-4.8) H 05/14/21 03:59 Lymph # (Auto) 1.3 X10^3/uL (1.3-2.9) 05/14/21 03:59 [place] # (Auto) 0.7 x10^3/uL (0.3-0.8) 05/14/21 03:59 Eos # (Auto) 0.6 x10^3/uL (0.0-0.2) H 05/14/21 03:59 Baso # (Auto) 0.1 X10^3/uL (0.0-0.1) 05/14/21 03:59 Absolute Nucleated RBC 0.0 /100WBC 05/14/21 03:59 Plt Morphology Comment Normal (NORMAL) 05/14/21 03:59 RBC Morphology Abnormal (NORMAL) 05/14/21 03:59 Dimorphic RBCs Present 05/14/21 03:59 Hypochromasia Slight A 05/14/21 03:59 Poikilocytosis Slight A 05/12/21 11:50 Anisocytosis 3+ A 05/14/21 03:59 Microcytosis 1+ A 05/14/21 03:59 Target Cells Present 05/14/21 03:59 Ovalocytes Present 05/14/21 03:59 Sodium 145 mmol/L (136-145) 05/14/21 03:59 Corrected Sodium TNP 05/14/21 03:59 Potassium 3.8 mmol/L (3.5-5.1) 05/14/21 03:59 Chloride 112 mmol/L (98-107) H 05/14/21 03:59 Carbon Dioxide 24.2 mmol/L (21-32) 05/14/21 03:59 BUN 11 mg/dL (7-18) 05/14/21 03:59 Creatinine 1.45 mg/dL (0.70-1.30) H 05/14/21 03:59 Est GFR (MDRD) Af Amer 59 (>60) 05/14/21 03:59 Est GFR (MDRD) Non-Af 49 (>60) L 05/14/21 03:59 Glucose 83 mg/dL (65-99) 05/14/21 03:59 POC Glucose (mg/dL) 105 mg/dL (65-99) H 05/12/21 21:02 Calcium 8.2 mg/dL (8.5-10.1) L 05/14/21 03:59 Corrected Calcium 9.2 mg/dL (8.5-10.1) 05/14/21 03:59 Total Bilirubin 0.50 mg/dL (0.2-1.0) 05/14/21 03:59 AST 32 Units/L (15-37) 05/14/21 03:59 ALT 34 Units/L (12-78) 05/14/21 03:59 Alkaline Phosphatase 57 Units/L (46-116) 05/14/21 03:59 Total Protein 5.9 g/dL (6.4-8.2) L 05/14/21 03:59 Albumin 2.7 g/dL (3.4-5.0) L 05/14/21 03:59 Globulin 3.2 g/dL (2.5-4.5) 05/14/21 03:59 Albumin/Globulin Ratio 0.8 Ratio (1.1-2.1) L 05/14/21 03:59 Specimen Type Clean catch urine 05/12/21 17:48 Urine Color Yellow (YELLOW) 05/12/21 17:48 Urine Appearance Slightly hazy (CLEAR) 05/12/21 17:48 Urine pH 6.0 (5.0 - 8.0) 05/12/21 17:48 Ur Specific [place] 1.025 (1.000-1.030) 05/12/21 17:48 Urine Protein 2+ (NEGATIVE) 05/12/21 17:48 Urine Glucose (UA) Negative (NEGATIVE) 05/12/21 17:48 Urine Ketones Negative (NEGATIVE) 05/12/21 17:48 Urine Occult Blood 1+ (NEGATIVE) 05/12/21 17:48 Urine Nitrite Negative (NEGATIVE) 05/12/21 17:48 Urine Bilirubin Negative (NEGATIVE) 05/12/21 17:48 Urine Urobilinogen Normal (NORMAL) 05/12/21 17:48 Ur Leukocyte Esterase 3+ (NEGATIVE) 05/12/21 17:48 Urine RBC 3-5 /HPF (0-3) A 05/12/21 17:48 Urine WBC 10-20 /HPF (0-5) A 05/12/21 17:48 Ur Squamous Epith Cells Few /HPF (NEGATIVE) 05/12/21 17:48 Urine Bacteria 2+ /HPF (NEGATIVE) 05/12/21 17:48 Urine Mucus Moderate /HPF (NEGATIVE) 05/12/21 17:48 Ur Culture Indicated? Yes/culture set up 05/12/21 17:48 Plan (1) Acute CVA (cerebrovascular accident): Status: Acute Plan: Neuro checks, MRI/MRA brain ordered, PT/OT Echo, Carotid U/S (2) Right hand weakness: Status: Acute (3) Hypothyroidism (acquired): Status: Acute
[2021-05-14] MEDS: COLACE CAP 100 MG PO SCH ×2 (08:24→21:29)
[2021-05-14] MEDS: PLAVIX PO SCH (08:24)
[2021-05-14] MEDS ORDERED: ASPIRIN PO SCH (09:00)
[2021-05-14] MEDS: LOVENOX INJ 40 MG SYR SC SCH (10:58)
--- NOTE | 2021-05-14 12:45 | MRI ---
HISTORYACUTE CVASTUDYBRAIN W/O CONCOMPARISONCT brain from 04/1921.TECHNIQUEMultiplanar multi-sequence MRI of the brain was obtained utilizing standard departmental protocol. Sagittal and axial T1 weighted images were obtained. Axial T2 and flair weighted images were performed as well. Axial diffusion weighted and ADC trace mapping was performed.FINDINGSDiffusion imaging: [There is restricted diffusion in the left precentral gyrus involving the hand knob on image 30 series 502. There is also focal restricted diffusion in the high left parietal lobe on image 31 series 502.]Susceptibility weighted imaging: [No abnormal susceptibility artifact.]Brain volume: [Appropriate for age.]Ventricles and basal cisterns: [Normal for age.]Extra-axial spaces: [No extra-axial collection.]Cerebral parynchema: [No mass, hematoma, or mass effect.] T2 and FLAIR bright signal in the areas of small infarct in the left frontal and parietal lobe. Moderate amount of T2 and Flair hyperintensities (small vessel disease) in the supratentorial subcortical and deep white matter. Chronic appearing right basal ganglia, bilateral thalamic, and left internal capsule lacunar infarcts. Chronic peripheral right cerebellar hemisphere infarct. Chronic peripheral small left occipital lobe infarct.Pituitary and other sagittal midline structures: [Normal.]Visualized orbits: [Normal.]Paranasal sinuses and mastoid air cells: [Mild mucosal thickening in the ethmoid air cells.]Bones: [Intact.]Other: [None.]IMPRESSION[Acute infarct in the left frontal lobe precentral gyrus involving the hand knob. Small acute infarct in the superior left parietal lobe.Other chronic ischemic changes as above.]Electronically signed by: Naldo Grubbs (May 14, 2021 12:42:53)
--- NOTE | 2021-05-14 12:47 | MRI ---
HISTORYACUTE CVASTUDYMRA HEAD W/O CONCOMPARISONMRA brain from 10/13/2019.[id number] MR angiography of the brain was performed. Rotating MIP images were generated and reviewed.FINDINGSLimitations: [[id number] motion degradation.]Intracranial internal carotid arteries: [Patent.]Anterior cerebral arteries: [Patent.]Middle cerebral arteries: [Patent.]Vertebrobasilar system:[Patent.]Posterior cerebral arteries: [Normal.]No vascular malformation.IMPRESSION[][Negative MRA head.]Electronically signed by: Naldo Grubbs (May 14, 2021 12:45:34)
[2021-05-14] MEDS: SYNTHROID 112 mcg TAB PO SCH (17:03)
[2021-05-14] MEDS ORDERED: ALLEGRA ONE (21:25)
[2021-05-14] MEDS: ALLEGRA PO SCH (21:29)
[2021-05-14] MEDS: SINGULAIR TAB 10 MG PO SCH (21:29)
[2021-05-14] MEDS: CRESTOR TAB 10 MG PO SCH (21:30)
[2021-05-15] MEDS: XOPENEX 1.25 MG/3 ML NEBULE NEB SCH ×3 (01:47→13:04)
[2021-05-15 04:59] LABS: BASOPHILS # (AUTO) 0.1 X10^3/uL (0.0-0.1); EOSINOPHILS # (AUTO) 0.7 x10^3/uL (0.0-0.2); EOSINOPHILS % (AUTO) 8.9 % (0.9-2.9); HEMATOCRIT 38.2 % (42.0-54.0); HEMOGLOBIN 12.7 g/dL (13.5-18.0); LYMPHOCYTES # (AUTO) 1.3 X10^3/uL (1.3-2.9); LYMPHOCYTES % (AUTO) 16.8 % (21.0-51.0); MEAN CORPUSCULAR HEMOGLOBIN 25.6 pg (27.0-34.0); MEAN CORPUSCULAR HGB CONC 33.3 g/dL (33.0-35.0); MEAN CORPUSCULAR VOLUME 76.8 fL (80.0-100.0); MEAN PLATELET VOLUME 8.5 fL (7.4-11.0); MONOCYTES # (AUTO) 0.8 x10^3/uL (0.3-0.8); MONOCYTES % (AUTO) 9.7 % (0.0-13.0); NEUTROPHILS # (AUTO) 4.9 x10^3/uL (2.2-4.8); NEUTROPHILS % (AUTO) 63.6 % (42.0-75.0); PLATELET COUNT 197 X10^3/uL (150.0-450.0); RED BLOOD COUNT 4.97 X10^6/uL (4.7-6.0); RED CELL DISTRIBUTION WIDTH 27.3 % (11.6-16.5); WHITE BLOOD COUNT 7.8 X10^3/uL (3.6-10.0)
[2021-05-15 05:15] LABS: ALANINE AMINOTRANSFERASE 30 Units/L (12-78); ALBUMIN 2.7 g/dL (3.4-5.0); ALKALINE PHOSPHATASE 59 Units/L (46-116); ASPARTATE AMINO TRANSFERASE 32 Units/L (15-37); BLOOD UREA NITROGEN 9 mg/dL (7-18); CALCIUM 8.3 mg/dL (8.5-10.1); CARBON DIOXIDE 24.4 mmol/L (21-32); CHLORIDE 111 mmol/L (98-107); COR CA(FOR HYPOALB) 9.3 mg/dL (8.5-10.1); CREATININE 1.26 mg/dL (0.70-1.30); SODIUM 144 mmol/L (136-145); TOTAL PROTEIN 5.9 g/dL (6.4-8.2); eGFR NON BLACK RACES 58 (>60)
[2021-05-15 05:22] LABS: PLATELET MORPHOLOGY COMMENT NORMAL (NORMAL)
[2021-05-15 05:23] LABS: ANISOCYTOSIS 3+; HYPOCHROMASIA SLIGHT; MICROCYTOSIS SLIGHT; OVALOCYTES PRESENT
[2021-05-15] MEDS: NS 1000 ML 1,000 ML IV SCH ×2 (05:35→07:04)
--- NOTE | 2021-05-15 06:56 | VAS ---
HISTORYAcute CVASTUDYCarotid sonogramTechnique: Multiple grayscale sonographic images were obtained. Color duplex Doppler evaluation was performed.COMPARISONNoneFINDINGSOn the right, no significant plaque was identified. Peak systolic velocity in the internal carotid artery 43.5 cm/second. ICA/CCA ratio 0.67. The right vertebral artery was not identified. On the left no significant plaque is identified. Peak systolic velocity in the internal carotid artery 59.2 cm/second. ICA/CCA ratio 0.84. The left vertebral artery was not identified.IMPRESSIONNo hemodynamically significant stenosis on either sideVertebral arteries not visualizedElectronically signed by: VIDAL CONTRERAS (May 15, 2021 06:54:09)
[2021-05-15] MEDS ORDERED: ASPIRIN EC 81 MG PO SCH (09:00)
[2021-05-15] MEDS: LOVENOX INJ 40 MG SYR SC SCH (09:03)
[2021-05-15] MEDS: COLACE CAP 100 MG PO SCH (09:05)
[2021-05-15] MEDS: PLAVIX PO SCH (09:05)
--- NOTE | 2021-05-15 11:39 | W.DIS.FURT ---
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 MRI/MRA brain revealed: Acute infarct in the left frontal lobe precentral gyrus involving the hand knob. Small acute infarct in the superior left parietal lobe. Carotid U/S was ordered and did not reveal any significant stenosis bilaterally. Echo:pEF. Pt was started on Plavix 75mg, ASA 81mg, and rosuvastatin increased to 20mg. Neuro checks performed and no other deficits were noted. PT/OT evaluation was conducted and pt will continue PT/OT outpatient. Neurology referral placed and appointment to see Dr Hicks in [place] on Friday. Pt discharged in stable condition, instructed to follow up with pcp in 3-5 days. Vital Signs: Vital Signs (72 hours) 05/12/21 13:36 05/12/21 13:54 05/12/21 14:18 Temperature 98.1 F Pulse Rate 70 Pulse Rate [Left Brachial] 98 H Pulse Rate [Right Radial] Pulse Rate [Right] Respiratory Rate 22 22 22 Blood Pressure 120/70 Blood Pressure [Left Arm] 163/70 Blood Pressure [Right Arm] 120/70 O2 Sat by Pulse Oximetry 98 98 96 05/12/21 16:00 05/12/21 16:20 05/12/21 17:12 Temperature 97.6 F Pulse Rate 70 Pulse Rate [Left Brachial] 46 L Pulse Rate [Right Radial] 69 Pulse Rate [Right] 70 Respiratory Rate 22 Blood Pressure Blood Pressure [Left Arm] 125/71 Blood Pressure [Right Arm] O2 Sat by Pulse Oximetry 95 97 05/12/21 20:00 05/13/21 00:00 05/13/21 00:10 Temperature 98.3 F 97.6 F Pulse Rate 71 Pulse Rate [Left Brachial] Pulse Rate [Right Radial] Pulse Rate [Right] 101 H 70 Respiratory Rate 24 24 Blood Pressure Blood Pressure [Left Arm] 135/81 117/91 Blood Pressure [Right Arm] O2 Sat by Pulse Oximetry 96 95 96 05/13/21 04:00 05/13/21 08:00 05/13/21 12:00 Temperature 97.6 F 97.8 F 97.8 F Pulse Rate Pulse Rate [Left Brachial] Pulse Rate [Right Radial] Pulse Rate [Right] 68 85 68 Respiratory Rate 23 24 26 H Blood Pressure Blood Pressure [Left Arm] 130/69 137/76 123/80 Blood Pressure [Right Arm] O2 Sat by Pulse Oximetry 94 L 94 L 94 L 05/13/21 16:00 05/13/21 20:00 05/14/21 00:00 Temperature 97.9 F 98.7 F 98.0 F Pulse Rate Pulse Rate [Left Brachial] Pulse Rate [Right Radial] Pulse Rate [Right] 80 73 79 Respiratory Rate 22 24 30 H Blood Pressure Blood Pressure [Left Arm] 155/86 108/68 141/73 Blood Pressure [Right Arm] O2 Sat by Pulse Oximetry 94 L 97 94 L 05/14/21 00:31 05/14/21 04:00 05/14/21 06:00 Temperature 98.4 F Pulse Rate 87 83 Pulse Rate [Left Brachial] Pulse Rate [Right Radial] Pulse Rate [Right] 76 Respiratory Rate 28 H Blood Pressure Blood Pressure [Left Arm] 139/73 Blood Pressure [Right Arm] O2 Sat by Pulse Oximetry 97 93 L 98 05/14/21 08:00 05/14/21 16:00 05/14/21 20:00 Temperature 97.6 F 98.2 F 97.5 F L Pulse Rate Pulse Rate [Left Brachial] Pulse Rate [Right Radial] Pulse Rate [Right] 62 118 H 60 Respiratory Rate 24 20 18 Blood Pressure Blood Pressure [Left Arm] 158/84 112/80 145/71 Blood Pressure [Right Arm] O2 Sat by Pulse Oximetry 92 L 96 94 L 05/15/21 00:00 05/15/21 04:00 05/15/21 06:27 Temperature 98.4 F 97.7 F Pulse Rate 79 Pulse Rate [Left Brachial] Pulse Rate [Right Radial] Pulse Rate [Right] 72 90 Respiratory Rate 18 18 Blood Pressure Blood Pressure [Left Arm] 144/79 129/72 Blood Pressure [Right Arm] O2 Sat by Pulse Oximetry 93 L 92 L 97 05/15/21 08:00 Temperature 97.6 F Pulse Rate Pulse Rate [Left Brachial] Pulse Rate [Right Radial] Pulse Rate [Right] 55 L Respiratory Rate 24 Blood Pressure Blood Pressure [Left Arm] 154/80 Blood Pressure [Right Arm] O2 Sat by Pulse Oximetry 94 L Labs: Laboratory Last Values WBC 7.8 X10^3/uL (3.6-10.0) 05/15/21 04:09 RBC 4.97 X10^6/uL (4.7-6.0) 05/15/21 04:09 Hgb 12.7 g/dL (13.5-18.0) L 05/15/21 04:09 Hct 38.2 % (42.0-54.0) L 05/15/21 04:09 MCV 76.8 fL (80.0-100.0) L 05/15/21 04:09 MCH 25.6 pg (27.0-34.0) L 05/15/21 04:09 MCHC 33.3 g/dL (33.0-35.0) 05/15/21 04:09 RDW 27.3 % (11.6-16.5) H 05/15/21 04:09 Plt Count 197 X10^3/uL (150.0-450.0) 05/15/21 04:09 Plt Count Comment Adequate (ADEQUATE) 05/15/21 04:09 MPV 8.5 fL (7.4-11.0) 05/15/21 04:09 Neut % (Auto) 63.6 % (42.0-75.0) 05/15/21 04:09 Lymph % (Auto) 16.8 % (21.0-51.0) L 05/15/21 04:09 [place] % (Auto) 9.7 % (0.0-13.0) 05/15/21 04:09 Eos % (Auto) 8.9 % (0.9-2.9) H 05/15/21 04:09 Baso % (Auto) 1.0 % (0.2-1.0) 05/15/21 04:09 Neut # (Auto) 4.9 x10^3/uL (2.2-4.8) H 05/15/21 04:09 Lymph # (Auto) 1.3 X10^3/uL (1.3-2.9) 05/15/21 04:09 [place] # (Auto) 0.8 x10^3/uL (0.3-0.8) 05/15/21 04:09 Eos # (Auto) 0.7 x10^3/uL (0.0-0.2) H 05/15/21 04:09 Baso # (Auto) 0.1 X10^3/uL (0.0-0.1) 05/15/21 04:09 Absolute Nucleated RBC 0.1 /100WBC 05/15/21 04:09 Plt Morphology Comment Normal (NORMAL) 05/15/21 04:09 RBC Morphology Abnormal (NORMAL) 05/15/21 04:09 Dimorphic RBCs Present 05/15/21 04:09 Hypochromasia Slight A 05/15/21 04:09 Poikilocytosis Slight A 05/12/21 11:50 Anisocytosis 3+ A 05/15/21 04:09 Microcytosis Slight A 05/15/21 04:09 Target Cells Present 05/14/21 03:59 Ovalocytes Present 05/15/21 04:09 Sodium 144 mmol/L (136-145) 05/15/21 04:09 Corrected Sodium TNP 05/15/21 04:09 Potassium 3.8 mmol/L (3.5-5.1) 05/15/21 04:09 Chloride 111 mmol/L (98-107) H 05/15/21 04:09 Carbon Dioxide 24.4 mmol/L (21-32) 05/15/21 04:09 BUN 9 mg/dL (7-18) 05/15/21 04:09 Creatinine 1.26 mg/dL (0.70-1.30) 05/15/21 04:09 Est GFR (MDRD) Af Amer > 60 (>60) 05/15/21 04:09 Est GFR (MDRD) Non-Af 58 (>60) L 05/15/21 04:09 Glucose 84 mg/dL (65-99) 05/15/21 04:09 POC Glucose (mg/dL) 105 mg/dL (65-99) H 05/12/21 21:02 Calcium 8.3 mg/dL (8.5-10.1) L 05/15/21 04:09 Corrected Calcium 9.3 mg/dL (8.5-10.1) 05/15/21 04:09 Total Bilirubin 0.50 mg/dL (0.2-1.0) 05/15/21 04:09 AST 32 Units/L (15-37) 05/15/21 04:09 ALT 30 Units/L (12-78) 05/15/21 04:09 Alkaline Phosphatase 59 Units/L (46-116) 05/15/21 04:09 Total Protein 5.9 g/dL (6.4-8.2) L 05/15/21 04:09 Albumin 2.7 g/dL (3.4-5.0) L 05/15/21 04:09 Globulin 3.2 g/dL (2.5-4.5) 05/15/21 04:09 Albumin/Globulin Ratio 0.8 Ratio (1.1-2.1) L 05/15/21 04:09 Specimen Type Clean catch urine 05/12/21 17:48 Urine Color Yellow (YELLOW) 05/12/21 17:48 Urine Appearance Slightly hazy (CLEAR) 05/12/21 17:48 Urine pH 6.0 (5.0 - 8.0) 05/12/21 17:48 Ur Specific Stevens 1.025 (1.000-1.030) 05/12/21 17:48 Urine Protein 2+ (NEGATIVE) 05/12/21 17:48 Urine Glucose (UA) Negative (NEGATIVE) 05/12/21 17:48 Urine Ketones Negative (NEGATIVE) 05/12/21 17:48 Urine Occult Blood 1+ (NEGATIVE) 05/12/21 17:48 Urine Nitrite Negative (NEGATIVE) 05/12/21 17:48 Urine Bilirubin Negative (NEGATIVE) 05/12/21 17:48 Urine Urobilinogen Normal (NORMAL) 05/12/21 17:48 Ur Leukocyte Esterase 3+ (NEGATIVE) 05/12/21 17:48 Urine RBC 3-5 /HPF (0-3) A 05/12/21 17:48 Urine WBC 10-20 /HPF (0-5) A 05/12/21 17:48 Ur Squamous Epith Cells Few /HPF (NEGATIVE) 05/12/21 17:48 Urine Bacteria 2+ /HPF (NEGATIVE) 05/12/21 17:48 Urine Mucus Moderate /HPF (NEGATIVE) 05/12/21 17:48 Ur Culture Indicated? 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 Pt is to keep follow up appointment as instructed and take medications as ordered. Discharge Medications Discharge Medications: amoxicillin [From Augmentin] Allergy (Verified 05/12/21 11:29) clavulanic acid [From Augmentin] Allergy (Verified 05/12/21 11:29) CONTINUE taking the following medications prednisone 5 mg PO DAILY 05/13/21 [History] New Prescriptions aspirin [Aspirin Low Dose] 81 mg PO DAILY 30 Days #30 tab 05/15/21 [Rx] clopidogrel 75 mg PO DAILY 30 Days #30 tab 05/15/21 [Rx] rosuvastatin 20 mg PO .at bedtime 30 Days #30 tab 05/15/21 [Rx] Follow up and Referral Follow Up: 1 Week Discharge Disposition Assessment: Stable no acute distress noted at time of discharge. Discharge Disposition: Home Discharge Condition: Stable Discharge Plan Discharge Plan Hospital Course: Pt is a 85 year old male past medical history of CVA, COPD, Asthma, Hypothyroidism, admitted for acute CVA with noted deficits of right hand weakness and persistent flexion of fingers. MRI/MRA brain revealed: Acute infarct in the left frontal lobe precentral gyrus involving the hand knob. Small acute infarct in the superior left parietal lobe. Carotid U/S was ordered and did not reveal any significant stenosis bilaterally. Echo:pEF. Pt was started on Plavix 75mg, ASA 81mg, and rosuvastatin increased to 20mg. Neuro checks performed and no other deficits were noted. PT/OT evaluation was conducted and pt will continue PT/OT outpatient. Neurology referral placed and appointment to see Dr Hicks in [place] on Friday. Pt discharged in stable condition, instructed to follow up with pcp in 3-5 days. Patient Disposition: HOME, SELF-CARE Condition: Stable Health Concerns: Post Hospitalization: new medications and changes needed to prevent readmission or further decline. Pt educated and given instructions on all concerns. Care Plan Goals: Problem: Activity Intolerance Goal: Increased tolerance to activity Instructions: Follow provided instructions. Follow up with primary physician as directed. Contact primary care physician or report to the closest Emergency Room if condition worsens. Plan of Treatment: Continue with present treatment and follow up plan. Pt is to keep follow up appointment as instructed and take medications as ordered. Assessment: Stable no acute distress noted at time of discharge. Prescriptions: New rosuvastatin 20 mg tablet 20 mg PO .at bedtime 30 Days Qty: 30 RF: 0 clopidogrel 75 mg Tablet 75 mg PO DAILY 30 Days Qty: 30 RF: 0 Continued levalbuterol HCl 1.25 mg/3 mL solution for nebulization 1.25 mg INHALATION Q6RESP RF: 0 fexofenadine 180 mg Tablet 180 mg PO Q24H RF: 0 montelukast 10 mg Tablet 10 mg PO QHS RF: 0 levothyroxine 112 mcg Tablet 112 mcg PO DAILY RF: 0 prednisone 5 mg tablet 5 mg PO DAILY RF: 0 aspirin [Aspirin Low Dose] 81 mg Tablet,Delayed Release (Dr/Ec) 81 mg PO DAILY 30 Days Qty: 30 RF: 0 Discontinued rosuvastatin 10 mg tablet 10 mg PO HS RF: 0 Follow ups/Referrals Follow ups/Referrals: [facility] [Other] - 05/15/21 10:30 am (Referral submitted for treatment on day of discharge.) JOI LAU [Primary Care Provider] - 05/22/21 9:00 am CHRISTOS HICKS [REFERRING] - 05/18/21 9:45 am ( Referral faxed for appointment. Dr. Hicks's office will call with appointment time and date.) Instructions Instructions: Emotional Health After Stroke, Warning Signs of a Stroke, Chronic Obstructive Pulmonary Disease, [id number], Weakness, [id number], Rehabilitation After a Stroke, Adult, Preventing Cerebrovascular Disease Stand Alone Forms: Precautions for COVID19, Patient Portal, Social Distancing
[2021-05-15 12:12] VITALS: BP 141/68
== END 2021-05-15 13:35 | disposition home or self-care (01) | DRG 66 ==
LOC: ER 11:19 → MED/SURG 13:04
PROVIDERS: ADMIT Internal Medicine; ATTEND Internal Medicine
DX: R20.0 Anesthesia of skin; E03.8 Other specified hypothyroidism; R26.89 Other abnormalities of gait and mobility; E78.2 Mixed hyperlipidemia; R29.898 Other symptoms and signs involving the musculoskeletal system; N28.9 Disorder of kidney and ureter, unspecified; I63.441 Cerebral infarction due to embolism of right cerebellar artery; R41.82 Altered mental status, unspecified; R94.31 Abnormal electrocardiogram [ECG] [EKG]; J44.9 Chronic obstructive pulmonary disease, unspecified